=== PATIENT | female | born 1985 | race Caucasian/White ===

== ENCOUNTER 2020-08-04 20:32 | Inpatient (IN) | payer MEDICAID, OTHER ==
[~2020-08-04] VITALS: Ht 170.1 cm; Wt 84.1 kg
[2020-08-04] MEDS ORDERED: LACTATED RINGERS 1,000 ML IV ONE (21:00)
[2020-08-04 21:18] LABS: BASOPHILS # (AUTO) 0.1 10^3/uL (0.0-0.1); BASOPHILS % (AUTO) 0 % (0-10); EOSINOPHILS # (AUTO) 0.1 10^3/uL (0.0-0.3); EOSINOPHILS % (AUTO) 1 % (0-10); HEMATOCRIT 45 % (35-52); HEMOGLOBIN 15.7 g/dL (11.5-16.0); LYMPHOCYTES # (AUTO) 3.5 10^3/uL (1.0-4.0); LYMPHOCYTES % (AUTO) 24 % (12-44); MEAN CORPUSCULAR HEMOGLOBIN 31 pg (25-34); MEAN CORPUSCULAR HGB CONC 35 g/dL (32-36); MEAN CORPUSCULAR VOLUME 89 fL (80-99); MEAN PLATELET VOLUME 10.3 fL (9.0-12.2); MONOCYTES # (AUTO) 1.6 10^3/uL (0.0-1.0); MONOCYTES % (AUTO) 11 % (0-12); NEUTROPHILS # (AUTO) 9.3 10^3/uL (1.8-7.8); NEUTROPHILS % (AUTO) 64 % (42-75); PLATELET COUNT 295 10^3/uL (130-400); WHITE BLOOD COUNT 14.6 10^3/uL (4.3-11.0)
[2020-08-04 21:27] LABS: CLARITY,URINE SL CLOUDY; COLOR,URINE YELLOW; GLUCOSE, URINE (UA) NEGATIVE (NEGATIVE); KETONES,URINE 1+ (NEGATIVE); LEUKOCYTE ESTERASE ,URINE NEGATIVE (NEGATIVE); NITRITE,URINE NEGATIVE (NEGATIVE); PH,URINE 5.5 (5-9); PROTEIN,URINE TRACE (NEGATIVE)
--- NOTE | 2020-08-04 21:33 | ED Psychosocial ---
General Chief Complaint: Substance Abuse Stated Complaint: AMS Source: EMS Exam Limitations: clinical condition (PT SEDATE ON ARRIVAL--EMS HAS TREATED WITH ATIVAN PRIOR TO ARRIVAL) History of Present Illness Date Seen by Provider: Aug 04, 2020 Time Seen by Provider: 20:40 Initial Comments PT ARRIVES VIA EMS FROM HOME EMS STATES THAT BOYFRIEND CALLED FOR PT WHO HAS BEEN ON A METH BINGE FOR THE LAST 4 DAYS ( IS UNKNOWN HOW IT HAS BEEN USED) AND WAS COMPLETELY OUT OF CONTROL, AND SHE HAS ALSO BEEN SMOKING MARIJUANA AND DRINKING AN UNKNOWN AMOUNT OF ALCOHOL--EMS REPORT THAT PT WAS FINISHING OFF A BOTTLE OF RAYMOND HENSON WHEN THEY ARRIVED EMS REPORT THAT PT WAS HAVING ALOT OF DYSTONIC MOVEMENT AND COULD NOT SIT OR LAY STILL, AND "WAS JUMPING AROUND LIKE A SPIDER MONKEY" AND THEY REPORT THAT PT HAD COMPLETELY DEMOLISHED THE RESIDENCE. EMS STATE PT WAS ABLE TO ANSWER A FEW QUESTIONS FOR THEM, BUT PT REQUIRED ATIVAN TO CONTROL BEHAVIOR--PT WAS GIVEN 4 MG ATIVAN PRIOR TO ARRIVAL AND NOW PT IS VERY SEDATE ON ARRIVAL IT WAS REPORTED TO EMS THAT PT JUST GOT OUT OF REHAB FACILITY IN [place] IN THE LAST WEEK NO OTHER INFORMATION IS OBTAINABLE AT THIS TIME PT WITH NO PRIOR VISITS HERE Allergies and Home Medications Allergies Coded Allergies: No Known Drug Allergies (Unverified , 08/04/20) Patient Home Medication List Home Medication List Reviewed: No Review of Systems Constitutional: other (UNABLE TO OBTAIN FROM PT) Psychiatric/Neurological: See HPI Past Olatcat-Aarlxm-Cprxfz Hx Past Med/Social Hx: Reviewed and Corrections made Patient Social History Alcohol Use: Regular Use Drug of Choice: METH, THC Smoking Status: Unknown if Ever Smoked Past Medical History Surgeries: Yes (PT HAS SURGICAL SCAR TO LEFT HUMERUS AREA) Psychosocial: Yes (POLYSUBSTANCE ABUSE) Physical Exam Vital Signs - First Documented 08/04/20 20:35 Temp 35.9 Pulse 101 Resp 20 B/P (MAP) 99/69 (79) Pulse Ox 100 O2 Delivery Nasal Cannula O2 Flow Rate 2.00 Capillary Refill : Height, Weight, BMI Height: '" Weight: lbs. oz. kg; BMI Method: General Appearance: other (PT SEDATE WITH MILD SNORING, RESOLVED WITH REPOSITIONING OF HEAD. RESPIRATIONS EVEN AND UNLABORED, O2 SATS 98% ON ROOM AIR. ) HEENT: other (PUPILS 2 MM, EQUAL AND NON-REACTIVE. ) Respiratory: no respiratory distress, no accessory muscle use Cardiovascular: no murmur, tachycardia Gastrointestinal: normal bowel sounds, soft, no organomegaly Extremities: no pedal edema, normal capillary refill Neurologic/Psychiatric: other ( ABOVE. ) Skin: normal color, warm/dry, other (PT WITH VERY EXTENSIVE SORES/SCARS/SCABS TO FACE, ARMS, CHEST AND LEGS--CONSISTENT WITH "PICKING" ) Progress/Results/Core Measures Results/Orders Lab Results Laboratory Tests Test 08/04/20 20:55 08/04/20 21:14 Range/Units White Blood Count 14.6 H 4.3-11.0 10^3/uL Red Blood Count 5.05 3.80-5.11 10^6/uL Hemoglobin 15.7 11.5-16.0 g/dL Hematocrit 45 35-52 % Mean Corpuscular Volume 89 80-99 fL Mean Corpuscular Hemoglobin 31 25-34 pg Mean Corpuscular Hemoglobin Concent 35 32-36 g/dL Red Cell Distribution Width 12.2 10.0-14.5 % Platelet Count 295 130-400 10^3/uL Mean Platelet Volume 10.3 9.0-12.2 fL Immature Granulocyte % (Auto) 0 % Neutrophils (%) (Auto) 64 42-75 % Lymphocytes (%) (Auto) 24 12-44 % Monocytes (%) (Auto) 11 0-12 % Eosinophils (%) (Auto) 1 0-10 % Basophils (%) (Auto) 0 0-10 % Neutrophils # (Auto) 9.3 H 1.8-7.8 10^3/uL Lymphocytes # (Auto) 3.5 1.0-4.0 10^3/uL Monocytes # (Auto) 1.6 H 0.0-1.0 10^3/uL Eosinophils # (Auto) 0.1 0.0-0.3 10^3/uL Basophils # (Auto) 0.1 0.0-0.1 10^3/uL Immature Granulocyte # (Auto) 0.1 0.0-0.1 10^3/uL Prothrombin Time 13.9 12.2-14.7 SEC INR Comment 1.0 0.8-1.4 Activated Partial Thromboplast Time 23 L 24-35 SEC Urine Color YELLOW Urine Clarity SL CLOUDY Urine pH 5.5 5-9 Urine Specific Carr 1.025 H 1.016-1.022 Urine Protein TRACE H NEGATIVE Urine Glucose (UA) NEGATIVE NEGATIVE Urine Ketones 1+ H NEGATIVE Urine Nitrite NEGATIVE NEGATIVE Urine Bilirubin 2+ H NEGATIVE Urine Urobilinogen 1.0 < = 1.0 MG/DL Urine Leukocyte Esterase NEGATIVE NEGATIVE Urine RBC (Auto) NEGATIVE NEGATIVE Urine RBC NONE /HPF Urine WBC 2-5 /HPF Urine Squamous Epithelial Cells 5-10 /HPF Urine Crystals NONE /LPF Urine Bacteria MODERATE H /HPF Urine Casts PRESENT /LPF Urine Hyaline Casts 10-25 H /LPF Urine Mucus SMALL H /LPF Urine Culture Indicated YES Sodium Level 140 135-145 MMOL/L Potassium Level 3.2 L 3.6-5.0 MMOL/L Chloride Level 105 98-107 MMOL/L Carbon Dioxide Level 16 L 21-32 MMOL/L Anion Gap 19 H 5-14 MMOL/L Blood Urea Nitrogen 12 7-18 MG/DL Creatinine 0.85 0.60-1.30 MG/DL Estimat Glomerular Filtration Rate > 60 BUN/Creatinine Ratio 14 Glucose Level 92 70-105 MG/DL Calcium Level 9.4 8.5-10.1 MG/DL Corrected Calcium 8.5-10.1 MG/DL Magnesium Level 2.0 1.6-2.4 MG/DL Total Bilirubin 1.2 H 0.1-1.0 MG/DL Aspartate Amino Transf (AST/SGOT) 26 5-34 U/L Alanine Aminotransferase (ALT/SGPT) 18 0-55 U/L Alkaline Phosphatase 90 40-136 U/L Total Creatine Kinase 345 H 29-168 U/L Creatine Kinase MB 5.6 <6.6 NG/ML Myoglobin 206.6 H 10.0-92.0 NG/ML Total Protein 7.5 6.4-8.2 GM/DL Albumin 4.6 H 3.2-4.5 GM/DL Serum Test, Qualitative NEGATIVE NEGATIVE Urine Opiates Screen POSITIVE H NEGATIVE Urine Oxycodone Screen NEGATIVE NEGATIVE Urine Methadone Screen NEGATIVE NEGATIVE Urine Propoxyphene Screen NEGATIVE NEGATIVE Acetaminophen Level < 10 L 10-30 UG/ML Urine Barbiturates Screen NEGATIVE NEGATIVE Ur Tricyclic Antidepressants Screen NEGATIVE NEGATIVE Urine Phencyclidine Screen NEGATIVE NEGATIVE Urine Amphetamines Screen POSITIVE H NEGATIVE Urine Methamphetamines Screen POSITIVE H NEGATIVE Urine Benzodiazepines Screen NEGATIVE NEGATIVE Urine Cocaine Screen NEGATIVE NEGATIVE Urine Cannabinoids Screen NEGATIVE NEGATIVE Serum Alcohol 71 H <10 MG/DL Coronavirus 2019 (MARÍA) Negative Negative My Orders Orders - JEAN-CLAUDE SILVA DO Ed Iv/Invasive Line Start (08/04/20 20:42) Ekg Tracing (08/04/20 20:42) Monitor-Rhythm Ecg Trace Only (08/04/20 20:42) Acetaminophen (08/04/20 20:42) Alcohol (08/04/20 20:42) Cbc With Automated Diff (08/04/20 20:42) Comprehensive Metabolic Panel (08/04/20 20:42) Creatine Kinase (08/04/20 20:42) Creatine Kinase Mb (08/04/20 20:42) Drug Screen Stat (Urine) (08/04/20 20:42) Hcg,Qualitative Serum (08/04/20 20:42) Magnesium (08/04/20 20:42) Protime With Inr (08/04/20 20:42) Partial Thromboplastin Time (08/04/20 20:42) Ua Culture If Indicated (08/04/20 20:42) Myoglobin Serum (08/04/20 20:42) Ed Iv/Invasive Line Start (08/04/20 20:42) Catheter(Urinary) Insert & Ass 03,15 (08/04/20 20:42) Ed Iv/Invasive Line Start (08/04/20 20:47) Lactated Ringers (Lr 1000 Ml Iv Solution (08/04/20 21:00) Chest 1 View, Ap/Pa Only (08/04/20 21:14) Coronavirus Sars-Cov-2 So 2018 (08/04/20 21:14) Covid 19 Inhouse Test (08/04/20 21:14) Urine Culture (08/04/20 20:55) Ceftriaxone For Iv Use (Rocephin For I (08/04/20 22:00) Ceftriaxone For Iv Use (Rocephin For I (08/04/20 22:15) Medications Given in ED Current Medications Medications Dose Ordered Sig/Devyn Route Start Time Stop Time Status Last Admin Dose Admin Ceftriaxone Sodium 1000 mg/ Sterile Water 10 ml @ 200 mls/hr ONCE ONCE IV 08/04/20 22:00 08/04/20 22:02 DC 08/04/20 23:04 200 MLS/HR Lactated Ringer's 1,000 ml @ 0 mls/hr Q0M ONCE IV 08/04/20 21:00 08/04/20 21:01 DC 08/04/20 21:13 1,000 MLS/HR Vital Signs/I&O 08/04/20 08/04/20 08/04/20 20:35 23:15 23:25 Temp 35.9 Pulse 101 86 86 Resp 20 18 B/P (MAP) 99/69 (79) 96/69 Pulse Ox 100 100 O2 Delivery Nasal Cannula Nasal Cannula O2 Flow Rate 2.00 2.00 Progress Progress Note : Progress Note GIVEN IV FLUIDS NO DETERIORATION IN PT'S CONDITION DURING ER STAY PT MAINTAINED AIRWAY THROUGHOUT ER STAY WITH O2 SATS 97-98% ON ROOM AIR THROUGHOUT ENTIRE ER STAY Initial ECG Impression Date: Aug 04, 2020 Initial ECG Impression Time: 20:42 Initial ECG Rate: 99 Initial ECG Rhythm: Normal Sinus Initial ECG Impression: Nonspecific Changes Initial ECG Comparisson: No Previous ECG Available Diagnostic Imaging Comments CXR--PER RADIOLOGIST REPORT AT 2141 FINDINGS: There is mild elevation of the right hemidiaphragm with mild right convex curvature at the upper thoracic spine. Cardiac silhouette is normal in size. There is no pleural effusion or pneumothorax. No focal consolidation is seen. IMPRESSION: No acute pulmonary abnormality is seen. Reviewed: Reviewed by Me Departure Communication (Admissions) 2152--SPOKE WITH DR. YUN, HOSPITALIST, ACCEPTS PT FOR ADMIT Impression Primary Impression: Polysubstance abuse Additional Impressions: Altered mental status associated with intoxication Alcohol use Disposition: ADMITTED INPATIENT Condition: Stable Admissions Decision to Admit Reason: Admit from ER (General) Decision to Admit/Date: Aug 04, 2020 Time/Decision to Admit Time: 21:55 Departure-Patient Inst. Referrals: NO,LOCAL PHYSICIAN (PCP/Family) Primary Care Physician Patient Instructions: ALCOHOL AND SUBSTANCE ABUSE JEAN-CLAUDE SILVA DO Aug 04, 2020 21:33
--- NOTE | 2020-08-04 21:37 | Diagnostic Imaging Report ---
HISTORY: Altered mental status, methamphetamine use. COMPARISON: None. TECHNIQUE: Frontal view of the chest. FINDINGS: There is mild elevation of the right hemidiaphragm with mild right convex curvature at the upper thoracic spine. Cardiac silhouette is normal in size. There is no pleural effusion or pneumothorax. No focal consolidation is seen. IMPRESSION: No acute pulmonary abnormality is seen. Dictated by: Dictated on workstation # [id number]
[2020-08-04 21:41] LABS: BACTERIA,URINE MODERATE /HPF; BILIRUBIN,URINE 2+ (NEGATIVE)
[2020-08-04 21:48] LABS: AMPHETAMINE SCREEN, URINE POSITIVE (NEGATIVE); BARBITURATE SCREEN URINE NEGATIVE (NEGATIVE); BENZODIAZEPINES SCREEN URINE NEGATIVE (NEGATIVE); CANNABINOID SCREEN, URINE NEGATIVE (NEGATIVE); COCAINE SCREEN URINE NEGATIVE (NEGATIVE); METHADONE STAT NEGATIVE (NEGATIVE); METHAMPHETAMINE SCREEN URINE S POSITIVE (NEGATIVE); OPIATE SCREEN URINE POSITIVE (NEGATIVE); OXYCODONE STAT NEGATIVE (NEGATIVE); PROPOXYPHENE STAT NEGATIVE (NEGATIVE); TRICYCLIC ANTIDEPRESSANTS SCRE NEGATIVE (NEGATIVE)
[2020-08-04 21:51] LABS: CHLORIDE 105 MMOL/L (98-107); POTASSIUM 3.2 MMOL/L (3.6-5.0); SODIUM 140 MMOL/L (135-145)
[2020-08-04 21:52] LABS: ALBUMIN 4.6 GM/DL (3.2-4.5); PROTHROMBIN TIME PATIENT 13.9 SEC (12.2-14.7)
[2020-08-04 21:53] LABS: CALCIUM 9.4 MG/DL (8.5-10.1)
[2020-08-04 21:54] LABS: GLUCOSE 92 MG/DL (70-105); TOTAL PROTEIN 7.5 GM/DL (6.4-8.2)
[2020-08-04 21:55] LABS: CARBON DIOXIDE 16 MMOL/L (21-32)
[2020-08-04 21:56] LABS: BILIRUBIN,TOTAL 1.2 MG/DL (0.1-1.0)
[2020-08-04 21:58] LABS: ALKALINE PHOSPHATASE 90 U/L (40-136); CREATININE SERUM 0.85 MG/DL (0.60-1.30); GFR ESTIMATED > 60
[2020-08-04 21:59] LABS: BUN/CREATININE RATIO 14
[2020-08-04] MEDS ORDERED: cefTRIAXone FOR IV USE 1,000 MG in WATER (STERILE) FOR INJECTION 10 ML IV ONE ×2 (22:00→22:15)
[2020-08-04 22:01] LABS: ALANINE AMINOTRANSFERASE 18 U/L (0-55); CREATINE KINASE 345 U/L (29-168)
[2020-08-04 22:08] LABS: CREATINE KINASE MB 5.6 NG/ML (<6.6)
[2020-08-04 22:09] LABS: ACETAMINOPHEN < 10 UG/ML (10-30)
[2020-08-04] MEDS ORDERED: WATER (STERILE) FOR INJECTION 10 ML ONE (22:54)
[2020-08-04] MEDS ORDERED: cefTRIAXone 1,000 MG IV (ROCEPHIN) VIAL ONE (22:55)
[2020-08-04] MEDS ORDERED: D5 1/2 NS W/KCL 20 MEQ/L 1,000 ML IV ONE (23:17)
[2020-08-04] MEDS ORDERED: LORazepam INJ 2 MG/ML (ATIVAN) VIAL ONE (23:20)
[2020-08-04] MEDS: D5 1/2 NS W/KCL 20 MEQ 1000 ML IV SCH (23:20)
[2020-08-04] MEDS: LORazepam INJ 2 MG/ML (ATIVAN) VIAL IV PRN (23:22)
[2020-08-04] MEDS ORDERED: ANTACID SUSP 30 ML UDC (MYLANTA) PO PRN (23:45)
[2020-08-04] MEDS ORDERED: LORazepam INJ 2 MG/ML (ATIVAN) VIAL IM/IV PRN (23:45)
[2020-08-04] MEDS ORDERED: ONDANSETRON 4 MG (ZOFRAN) ORAL DISSOLVE TAB SL PRN (23:45)
[2020-08-04] MEDS ORDERED: LORazepam 1 MG (ATIVAN) TAB PO PRN (23:45)
[2020-08-04] MEDS ORDERED: SENNA W/DOCUSATE (SENOKOT S) TABLET PO PRN (23:45)
[2020-08-04] MEDS ORDERED: ONDANSETRON 4 MG/2 ML (SDV) Z0FRAN IV PRN (23:45)
[2020-08-05] MEDS: LORazepam INJ 2 MG/ML (ATIVAN) VIAL IV PRN ×2 (02:30→08:48)
[2020-08-05 04:18] LABS: BASOPHILS % (AUTO) 0 % (0-10); EOSINOPHILS # (AUTO) 0.2 10^3/uL (0.0-0.3); EOSINOPHILS % (AUTO) 3 % (0-10); HEMATOCRIT 41 % (35-52); HEMOGLOBIN 13.6 g/dL (11.5-16.0); LYMPHOCYTES # (AUTO) 2.3 10^3/uL (1.0-4.0); LYMPHOCYTES % (AUTO) 28 % (12-44); MEAN CORPUSCULAR HEMOGLOBIN 30 pg (25-34); MEAN CORPUSCULAR HGB CONC 33 g/dL (32-36); MEAN CORPUSCULAR VOLUME 91 fL (80-99); MEAN PLATELET VOLUME 9.9 fL (9.0-12.2); MONOCYTES # (AUTO) 0.8 10^3/uL (0.0-1.0); MONOCYTES % (AUTO) 9 % (0-12); NEUTROPHILS # (AUTO) 4.9 10^3/uL (1.8-7.8); NEUTROPHILS % (AUTO) 59 % (42-75); PLATELET COUNT 191 10^3/uL (130-400); WHITE BLOOD COUNT 8.3 10^3/uL (4.3-11.0)
[2020-08-05 04:24] LABS: ALBUMIN 3.7 GM/DL (3.2-4.5); CHLORIDE 106 MMOL/L (98-107); POTASSIUM 3.2 MMOL/L (3.6-5.0); SODIUM 139 MMOL/L (135-145)
[2020-08-05 04:25] LABS: CALCIUM 8.2 MG/DL (8.5-10.1)
[2020-08-05 04:26] LABS: GLUCOSE 102 MG/DL (70-105)
[2020-08-05 04:28] LABS: BILIRUBIN,TOTAL 0.8 MG/DL (0.1-1.0); CARBON DIOXIDE 24 MMOL/L (21-32)
[2020-08-05 04:30] LABS: ALKALINE PHOSPHATASE 74 U/L (40-136); CREATININE SERUM 0.67 MG/DL (0.60-1.30); GFR ESTIMATED > 60
[2020-08-05 04:31] LABS: BUN/CREATININE RATIO 15
[2020-08-05 04:33] LABS: ALANINE AMINOTRANSFERASE 16 U/L (0-55); MAGNESIUM 2.2 MG/DL (1.6-2.4)
[2020-08-05] MEDS ORDERED: POTASSIUM CL 10MEQ/50ML IVPB 50 ML IV SCH (05:45)
--- NOTE | 2020-08-05 05:49 | Pulmonary Consultation ---
History of Present Illness History of Present Illness Date Seen by Provider: Aug 05, 2020 Time Seen by Provider: 05:43 Date of Admission Allergies and Home Medications Allergies Coded Allergies: No Known Drug Allergies (Unverified , 08/04/20) Past Nbwxcqg-Zudzpf-Wkoync Hx Past Med/Social Hx: Reviewed and Corrections made Patient Social History Alcohol Use: Regular Use Drug of Choice: METH, THC Smoking Status: Unknown if Ever Smoked Recent Infectious Disease Expo: No Substance type: Amphetamines, Methamphetamine, Opiates/Opioids, Marijuana Alcohol Use?: Yes Past Medical History Surgeries: Yes (PT HAS SURGICAL SCAR TO LEFT HUMERUS AREA) Psychosocial: Yes (POLYSUBSTANCE ABUSE) Review of Systems Time Seen by Provider: 05:47 Sepsis Event Evaluation Height, Weight, BMI Height: '" Weight: lbs. oz. kg; 27.37 BMI Method: Exam Exam Vital Signs Date Time Temp Pulse Resp B/P (MAP) Pulse Ox O2 Delivery O2 Flow Rate FiO2 08/05/20 05:00 70 110/69 (83) 100 Nasal Cannula 2.00 08/05/20 04:30 36.4 08/05/20 04:05 75 110/77 (88) 100 Nasal Cannula 2.00 08/05/20 03:59 100 Nasal Cannula 2.00 08/05/20 03:00 86 123/95 (104) 100 Nasal Cannula 2.00 08/05/20 02:00 76 92/63 (73) 100 Nasal Cannula 2.00 08/05/20 01:00 81 90/61 (71) 100 Nasal Cannula 2.00 08/05/20 01:00 81 08/05/20 00:45 81 86/58 (67) 100 Nasal Cannula 2.00 08/05/20 00:30 84 89/60 (70) 100 Nasal Cannula 2.00 08/05/20 00:15 86 91/59 (70) 100 Nasal Cannula 2.00 08/05/20 00:00 85 90/63 (72) 100 Nasal Cannula 2.00 08/04/20 23:45 87 96/75 (82) 100 Nasal Cannula 2.00 08/04/20 23:30 86 95/68 (77) 100 Nasal Cannula 2.00 08/04/20 23:30 100 Nasal Cannula 2.00 08/04/20 23:25 86 08/04/20 23:20 35.9 71 20 98/66 (77) 100 Nasal Cannula 2.00 08/04/20 23:15 86 18 96/69 100 Nasal Cannula 2.00 08/04/20 20:35 35.9 101 20 99/69 (79) 100 Nasal Cannula 2.00 I & O 08/05/20 07:00 Intake Total 1010 ml Output Total 125 ml Balance 885 ml Height & Weight Height: '" Weight: lbs. oz. kg; 27.37 BMI Method: Capillary Refill: Less Than 3 Seconds Gastrointestinal: normal bowel sounds, soft, no organomegaly Results Lab Laboratory Tests 08/04/20 20:55 08/05/20 04:05 Assessment/Plan Assessment/Plan Polysubstance abuse with agitation and confusion -Start precedex gtt Alcohol dependance -[facility] protocol UTI -GINA Hannon DO Aug 05, 2020 05:49
[2020-08-05] MEDS: POTASSIUM CL 10MEQ/50ML IVPB 50 ML IV SCH ×7 (06:01→10:01)
[2020-08-05] MEDS: DexMEDEtomidine 250 ML DRIP 250 ML IV SCH ×2 (06:02→17:21)
[2020-08-05] MEDS: D5 1/2 NS W/KCL 20 MEQ 1000 ML IV SCH ×3 (06:46→20:10)
--- NOTE | 2020-08-05 08:04 | History & Physical-Hospitalist ---
MARISSA SANDOVAL MED STUDENT 08/05/20 0804: History of Present Illness HPI/Chief Complaint 34 yo F presents to ER from home via EMS due to altered mental status/ erratic behavior as reported by boyfriend. Pt was sedated with 4mg ativan by EMS on route to ER due to combative behavior. EMS also reports that the patient was having a lot of dystonic movement and could not sit or lay still. Boyfriend reports the patient has been on a meth binge for the last 4 days, route of administration is unknown at this time. Pt also reportedly had been smoking dafne itzel and drinking an unknown amount of alcohol, though EMS reports that the patient was finishing a bottle of tequila when they arrived. Pt was able to answer few questions to EMS including that she was recently released from a rehabilitation facility in [place] within the past week *HPI gathered from ER summary report due to limited availability for interview or exam Source: RN/MD, other (ED summary reviewed) Exam Limitations: clinical condition (sedated and combative when able to be aroused) Date Seen 08/05/20 Time Seen by a Provider: 07:59 Attending Physician Iman Jones DO PCP No,Local Physician Referring Physician Date of Admission Aug 04, 2020 at 22:14 Home Medications & Allergies Home Medications Reviewed patient Home Medication Reconciliation performed by pharmacy medication reconciliations breeder service technician and/or nursing. Patients Allergies have been reviewed. Allergies Allergies Coded Allergies No Known Drug Allergies (Unverified08/04/20) Past Yzzytbr-Kluavk-Owtesa Hx Past Med/Social Hx: Reviewed and Corrections made Patient Social History Alcohol Use: Regular Use Recreational Drug Use: Yes Drug of Choice: METH, THC Smoking Status: Unknown if Ever Smoked Recent Foreign Travel: No Contact w/other who traveled: No Recent Infectious Disease Expo: No Review of Systems ROS-Unable to Obtain: Unable to obtain at this time due to clinical condition Skin: lesions (Multiple lesions from drug use) Psychiatric/Neurological: Other (Polysubstance abuse) Physical Exam Physical Exam Vital Signs Vital Signs - First Documented 08/04/20 20:35 Temp 35.9 Pulse 101 Resp 20 B/P (MAP) 99/69 (79) Pulse Ox 100 O2 Delivery Nasal Cannula O2 Flow Rate 2.00 Capillary Refill : Less Than 3 Seconds Height, Weight, BMI Height: '" Weight: lbs. oz. kg; 27.37 BMI Method: Comments Unable to obtain at this time due to clinical condition Results Results/Procedures Labs Laboratory Tests 08/04/20 20:55 08/05/20 04:05 Patient resulted labs reviewed. Assessment/Plan Assessment and Plan ASSESSMENT: Altered mental status Polysubstance abuse (meth/amphetamines, opioids, marijuana) Alcohol dependence UTI Hypokalemia - 3.2 (3/1 AM) PLAN: Geodon for combativeness CIWA protocol Thiamine replacement Griselda - rocephin for UTI Obtain more information and examination when possible IMAN JONES DO 08/06/20 0549: History of Present Illness HPI/Chief Complaint Pt was admitted for altered mental status and poly-substance abuse She is currently very agitated, I did give her Geodon 20 Mg IM Q4hrs prn and Ativan She is very combative and may ultimately require intubation if her agitation and aggression worsen Unable to obtain any details from her Source: patient Past Zacspuq-Uixmze-Zfodjb Hx Past Med/Social Hx: Reviewed Nursing Past Med/Soc Hx, Reviewed and Corrections made Patient Social History Marrital Status: single Review of Systems Constitutional: see HPI Physical Exam Physical Exam General Appearance: No Apparent Distress, Chronically ill Respiratory: Lungs Clear Cardiovascular: Regular Rate, Rhythm Assessment/Plan Admission Diagnosis Assessment: AMS CUCA Plan: Supportive care Antipsychotics Admission Status: Inpatient Order (span 2 midnights) Reason for Inpatient Admission: ams Diagnosis/Problems Diagnosis/Problems (1) Altered mental status associated with intoxication Status: Acute (2) Polysubstance abuse Status: Acute (3) Alcohol use Status: Acute Supervisory-Addendum Brief Verification & Attestation Participated in pt care: history, MDM, physical Personally performed: exam, history, MDM, supervision of care Care discussed with: Medical Student Procedures: n/a Results interpretation: Verified all documentation Verification and Attestation of Medical Student E/M Service A medical student performed and documented this service in my presence. I reviewed and verified all information documented by the medical student and made modifications to such information, when appropriate. I personally performed the physical exam and medical decision making. Iman Jones, Aug 06, 2020,05:49 MARISSA SANDOVAL MED STUDENT Aug 05, 2020 08:04 IMAN JONES DO Aug 06, 2020 05:49
[2020-08-05] MEDS: THIAMINE INJECTION 100 MG, FOLIC ACID INJECTION 1 MG, MAGNESIUM SULFATE 2 GM, VITAMIN M... IV SCH ×5 (08:05)
[2020-08-05] MEDS ORDERED: ZIPRASIDONE 20 MG INJ (GEODON) VIAL IM ONE (08:53)
[2020-08-05] MEDS ORDERED: ZIPRASIDONE INJECTION 20 MG in WATER (STERILE) FOR INJECTION 1.2 ML IM PRN (09:00)
[2020-08-05] MEDS ORDERED: NS IV 1000 ML 1,000 ML ONE (20:27)
[2020-08-05] MEDS ORDERED: NS IV 1000 ML 1,000 ML IV SCH (20:30)
[2020-08-05] MEDS: cefTRIAXone 1,000 MG/SWFI 10 ML IV PUSH IV SCH ×2 (23:13)
[2020-08-06] MEDS ORDERED: NS IV 1000 ML 2,000 ML ONE (02:05)
[2020-08-06] MEDS: NS IV 1000 ML 1,000 ML IV SCH ×2 (02:13→03:17)
[2020-08-06] MEDS: D5 1/2 NS W/KCL 20 MEQ 1000 ML IV SCH (02:28)
[2020-08-06 02:58] LABS: BASOPHILS % (AUTO) 0 % (0-10); EOSINOPHILS # (AUTO) 0.2 10^3/uL (0.0-0.3); EOSINOPHILS % (AUTO) 3 % (0-10); HEMATOCRIT 40 % (35-52); HEMOGLOBIN 12.8 g/dL (11.5-16.0); LYMPHOCYTES % (AUTO) 26 % (12-44); MEAN CORPUSCULAR HEMOGLOBIN 30 pg (25-34); MEAN CORPUSCULAR HGB CONC 32 g/dL (32-36); MEAN CORPUSCULAR VOLUME 93 fL (80-99); MEAN PLATELET VOLUME 10.2 fL (9.0-12.2); MONOCYTES # (AUTO) 0.4 10^3/uL (0.0-1.0); MONOCYTES % (AUTO) 5 % (0-12); NEUTROPHILS # (AUTO) 5.1 10^3/uL (1.8-7.8); NEUTROPHILS % (AUTO) 65 % (42-75); PLATELET COUNT 174 10^3/uL (130-400); WHITE BLOOD COUNT 7.8 10^3/uL (4.3-11.0)
[2020-08-06 03:16] LABS: CHLORIDE 115 MMOL/L (98-107); POTASSIUM 4.6 MMOL/L (3.6-5.0); SODIUM 139 MMOL/L (135-145)
[2020-08-06 03:17] LABS: CALCIUM 7.3 MG/DL (8.5-10.1)
[2020-08-06 03:18] LABS: GLUCOSE 80 MG/DL (70-105)
[2020-08-06 03:19] LABS: CARBON DIOXIDE 18 MMOL/L (21-32)
[2020-08-06 03:21] LABS: CREATININE SERUM 0.58 MG/DL (0.60-1.30); GFR ESTIMATED > 60; PHOSPHORUS 2.2 MG/DL (2.3-4.7)
[2020-08-06 03:22] LABS: BUN/CREATININE RATIO 7
[2020-08-06 03:24] LABS: MAGNESIUM 2.2 MG/DL (1.6-2.4)
--- NOTE | 2020-08-06 04:47 | Pulmonary Progress Note ---
Subjective Time Seen by a Provider: 04:47 Subjective/Events-last exam No complications noted. Sepsis Event Evaluation Height, Weight, BMI Height: '" Weight: lbs. oz. kg; 27.37 BMI Method: Focused Exam Lactate Level 08/06/20 02:45: Lactic Acid Level 1.46 Lactic Acid Level Laboratory Tests Test 08/06/20 02:45 Lactic Acid Level 1.46 MMOL/L (0.50-2.00) Exam Exam Vital Signs Date Time Temp Pulse Resp B/P (MAP) Pulse Ox O2 Delivery O2 Flow Rate FiO2 08/06/20 04:00 68 19 101/62 (75) 98 Room Air 08/06/20 03:00 70 12 91/63 (72) 99 Room Air 08/06/20 02:00 56 13 83/50 (61) 98 Room Air 08/06/20 01:00 73 27 94/76 (82) 97 Room Air 08/06/20 01:00 73 08/06/20 00:29 35.6 08/06/20 00:15 65 17 93/62 (72) 95 Room Air 08/06/20 00:00 98 Room Air 08/05/20 23:00 55 13 85/58 (67) 99 Room Air 08/05/20 22:00 56 15 96/51 (66) 97 Room Air 08/05/20 21:00 58 14 63/40 (48) 99 Room Air 08/05/20 20:11 35.1 47 16 74/52 (59) 99 Room Air 08/05/20 20:00 99 Room Air 08/05/20 20:00 47 16 71/47 (55) 99 Room Air 08/05/20 19:00 45 15 79/52 (61) 89 Room Air 08/05/20 19:00 46 08/05/20 18:00 15 78/48 (58) 90 Nasal Cannula 2.00 08/05/20 17:21 55 81/58 08/05/20 17:00 25 81/58 (66) 98 Nasal Cannula 2.00 08/05/20 16:00 98 Room Air 08/05/20 16:00 25 84/54 (64) 98 Nasal Cannula 2.00 08/05/20 15:00 17 94/56 (69) 98 Nasal Cannula 2.00 08/05/20 14:00 23 91/56 (68) 99 Nasal Cannula 2.00 08/05/20 13:00 24 90/60 (70) 98 Nasal Cannula 2.00 08/05/20 12:55 76 08/05/20 12:00 98 Room Air 08/05/20 12:00 36.1 08/05/20 12:00 64 21 95/61 (72) 99 Nasal Cannula 2.00 08/05/20 11:00 25 94/66 (75) 100 Nasal Cannula 2.00 08/05/20 10:00 67 93/45 (61) 98 Nasal Cannula 2.00 08/05/20 09:00 68 94/51 (65) 99 Nasal Cannula 2.00 08/05/20 08:12 36.3 08/05/20 08:00 63 82/56 (65) 100 Nasal Cannula 2.00 08/05/20 08:00 100 Room Air 08/05/20 07:00 75 99/50 (66) 100 Nasal Cannula 2.00 08/05/20 06:50 76 08/05/20 06:02 66 112/74 08/05/20 06:00 69 112/74 (87) 100 Nasal Cannula 2.00 08/05/20 05:00 70 110/69 (83) 100 Nasal Cannula 2.00 I & O 08/06/20 07:00 Intake Total 1050 ml Output Total 1295 ml Balance -245 ml Height & Weight Height: '" Weight: lbs. oz. kg; 27.37 BMI Method: General Appearance: No Apparent Distress, Anxious HEENT: PERRL/EOMI, Pharynx Normal Neck: Full Range of Motion, Non Tender, Supple Respiratory: Chest Non Tender, Lungs Clear, Normal Breath Sounds, No Accessory Muscle Use, No Respiratory Distress Cardiovascular: Regular Rate, Rhythm, No Edema, No Gallop Capillary Refill: Less Than 3 Seconds Gastrointestinal: normal bowel sounds, soft, no organomegaly Extremity: Normal Capillary Refill Neurologic/Psychiatric: Alert, Oriented x3 Skin: Normal Color, Warm/Dry Lymphatic: No Adenopathy Results Lab Laboratory Tests 08/04/20 20:55 08/05/20 04:05 08/06/20 02:45 Assessment/Plan Assessment/Plan Polysubstance abuse with agitation and confusion -precedex gtt is now off -PRN Geodon -Ativan Methamphetamine abuse Alcohol dependance -CIWA protocol Metabolic acidosis -LA is normal -Give 2 amps of bicarb Hypotension -s/p 3 liters NS -Change IVF to D5LR at 150 Multiple facial abrasions -Pt is moving all extremities -She does wake up and follows commands. UTI -GINA Hannon DO Aug 06, 2020 04:47
[2020-08-06] MEDS ORDERED: SODIUM BICARB 8.4% 50 MEQ/50 ML VIAL IV ONE (05:30)
[2020-08-06] MEDS ORDERED: ZIPRASIDONE 20 MG INJ (GEODON) VIAL IM PRN (05:30)
[2020-08-06] MEDS: D5 LR IV SOLUTION 1,000 ML IV SCH ×3 (05:52→20:01)
[2020-08-06] MEDS: ENOXAPARIN 40 MG/0.4 ML (LOVENOX) SYR SC SCH (06:07)
[2020-08-06] MEDS: PANTOPRAZOLE 40 MG (PROTONIX) VIAL IV SCH (08:54)
[2020-08-06] MEDS: THIAMINE INJECTION 100 MG, FOLIC ACID INJECTION 1 MG, MAGNESIUM SULFATE 2 GM, VITAMIN M... IV SCH ×5 (08:55)
[2020-08-06] MEDS: diphenhydrAMINE 25 MG TAB (BENADRYL) PO PRN ×3 (09:45→22:17)
--- NOTE | 2020-08-06 09:59 | Progress Note - Hospitalist ---
Subjective HPI/CC On Admission Date Seen by Provider: Aug 06, 2020 Time Seen by Provider: 10:00 Pt was admitted for altered mental status and poly-substance abuse She is currently very agitated, I did give her Geodon 20 Mg IM Q4hrs prn and Ativan She is very combative and may ultimately require intubation if her agitation and aggression worsen Unable to obtain any details from her Subjective/Events-last exam Pt more lucid Swollen around their periorbital region so will give Benadryl Overall she is doing much better Road rash on the right side of her face Review of Systems General: Fatigue, Malaise Focused Exam Lactate Level 08/06/20 02:45: Lactic Acid Level 1.46 Objective Exam Vital Signs Vital Signs Date Time Temp Pulse Resp B/P (MAP) Pulse Ox O2 Delivery O2 Flow Rate FiO2 08/07/20 04:04 37.1 83 16 107/68 (81) 94 Room Air 08/05/20 20:00 Capillary Refill : Less Than 3 Seconds General Appearance: No Apparent Distress, WD/WN, Chronically ill, Obese Respiratory: Lungs Clear Cardiovascular: Regular Rate, Rhythm Neurologic/Psychiatric: Alert, Oriented x3, No Motor/Sensory Deficits, Normal Mood/Affect Results/Procedures Lab Patient resulted labs reviewed. Assessment/Plan Assessment and Plan Assess & Plan/Chief Complaint ASSESSMENT: Altered mental status Polysubstance abuse (meth/amphetamines, opioids, marijuana) Alcohol dependence UTI Hypokalemia - 3.2 (3/1 AM) PLAN: Geodon for combativeness [facility] protocol Thiamine replacement Griselda - rocephin for UTI Obtain more information and examination when possible 07/09/20: Transfer to 4th floor Review home meds Diagnosis/Problems Diagnosis/Problems (1) Altered mental status associated with intoxication Status: Acute (2) Polysubstance abuse Status: Acute (3) Alcohol use Status: Acute JARRED HARPER DO Aug 06, 2020 09:58
[2020-08-06] MEDS: ACETAMINOPHEN 325 MG TABLET PO PRN ×2 (14:59→22:18)
[2020-08-06] MEDS ORDERED: WATER (STERILE) FOR INJECTION 10 ML ONE (21:50)
[2020-08-06] MEDS ORDERED: cefTRIAXone 1,000 MG IV (ROCEPHIN) VIAL ONE (21:50)
[2020-08-06] MEDS: cefTRIAXone 1,000 MG/SWFI 10 ML IV PUSH IV SCH ×2 (22:02)
[2020-08-07] MEDS: D5 LR IV SOLUTION 1,000 ML IV SCH ×2 (02:46→09:00)
[2020-08-07] MEDS: ENOXAPARIN 40 MG/0.4 ML (LOVENOX) SYR SC SCH (05:29)
[2020-08-07 06:21] LABS: BASOPHILS % (AUTO) 0 % (0-10); EOSINOPHILS # (AUTO) 0.2 10^3/uL (0.0-0.3); EOSINOPHILS % (AUTO) 2 % (0-10); HEMATOCRIT 38 % (35-52); HEMOGLOBIN 12.8 g/dL (11.5-16.0); LYMPHOCYTES # (AUTO) 2.7 10^3/uL (1.0-4.0); LYMPHOCYTES % (AUTO) 39 % (12-44); MEAN CORPUSCULAR HEMOGLOBIN 31 pg (25-34); MEAN CORPUSCULAR HGB CONC 33 g/dL (32-36); MEAN CORPUSCULAR VOLUME 92 fL (80-99); MEAN PLATELET VOLUME 10.1 fL (9.0-12.2); MONOCYTES # (AUTO) 0.5 10^3/uL (0.0-1.0); MONOCYTES % (AUTO) 7 % (0-12); NEUTROPHILS # (AUTO) 3.6 10^3/uL (1.8-7.8); NEUTROPHILS % (AUTO) 51 % (42-75); PLATELET COUNT 210 10^3/uL (130-400)
[2020-08-07 06:30] LABS: CHLORIDE 110 MMOL/L (98-107); POTASSIUM 3.5 MMOL/L (3.6-5.0); SODIUM 142 MMOL/L (135-145)
[2020-08-07 06:31] LABS: CALCIUM 7.6 MG/DL (8.5-10.1)
[2020-08-07 06:32] LABS: GLUCOSE 88 MG/DL (70-105)
[2020-08-07 06:33] LABS: CARBON DIOXIDE 24 MMOL/L (21-32)
[2020-08-07 06:36] LABS: CREATININE SERUM 0.63 MG/DL (0.60-1.30); GFR ESTIMATED > 60; PHOSPHORUS 2.5 MG/DL (2.3-4.7)
[2020-08-07 06:37] LABS: BUN/CREATININE RATIO 3
[2020-08-07 06:38] LABS: MAGNESIUM 2.1 MG/DL (1.6-2.4)
[2020-08-07] MEDS: THIAMINE INJECTION 100 MG, FOLIC ACID INJECTION 1 MG, MAGNESIUM SULFATE 2 GM, VITAMIN M... IV SCH ×5 (09:00)
[2020-08-07] MEDS: PANTOPRAZOLE 40 MG (PROTONIX) VIAL IV SCH (09:00)
[2020-08-07] MEDS ORDERED: GABA300C PO (09:22)
[2020-08-07] MEDS ORDERED: TRZ50T PO (09:22)
[2020-08-07] MEDS ORDERED: HYDR50TA76 PO (09:22)
[2020-08-07] MEDS ORDERED: BREX2TAB PO (09:22)
[2020-08-07] MEDS ORDERED: SERT-414 PO (09:22)
--- NOTE | 2020-08-07 11:02 | Discharge Summary ---
Discharge Summary Hospital Course Problems/Dx: (1) Altered mental status associated with intoxication Status: Acute (2) Polysubstance abuse Status: Acute (3) Alcohol use Status: Acute Hospital Course Date of Admission: Aug 04, 2020 at 22:14 Admission Diagnosis : Family Physician/Provider: Christel,Local Physician Date of Discharge: 08/07/20 Discharge Diagnosis: polysubstance use, AMS Hospital Course: Hospital course: Pt had an uneventful hospital course, she was admitted for poly-substance abuse with meth and she was in an altered mental status requiring anti-psychotics to calm her. Overall she did very well, she recovered well, PT saw her and had no reservations about her discharging. She will have an appointment with drug rehab at [facility] tomorrow. Labs and Pending Lab Test: Laboratory Tests 08/06/20 18:05: Stool Occult Blood Immunoassay NEGATIVE 08/07/20 05:45: White Blood Count 7.0, Red Blood Count 4.19, Hemoglobin 12.8, Hematocrit 38, Mean Corpuscular Volume 92, Mean Corpuscular Hemoglobin 31, Mean Corpuscular Hemoglobin Concent 33, Red Cell Distribution Width 12.2, Platelet Count 210, Mean Platelet Volume 10.1, Immature Granulocyte % (Auto) 0, Neutrophils (%) (Auto) 51, Lymphocytes (%) (Auto) 39, Monocytes (%) (Auto) 7, Eosinophils (%) (Auto) 2, Basophils (%) (Auto) 0, Neutrophils # (Auto) 3.6, Lymphocytes # (Auto) 2.7, Monocytes # (Auto) 0.5, Eosinophils # (Auto) 0.2, Basophils # (Auto) 0.0, Immature Granulocyte # (Auto) 0.0, Sodium Level 142, Potassium Level 3.5L, Chloride Level 110H, Carbon Dioxide Level 24, Anion Gap 8, Blood Urea Nitrogen < 2L, Creatinine 0.63, Estimat Glomerular Filtration Rate > 60, BUN/Creatinine Ratio 3, Glucose Level 88, Calcium Level 7.6L, Phosphorus Level 2.5, Magnesium Level 2.1 Microbiology 08/04/20 MRSA Screen - Final, Complete MRSA not isolated 08/04/20 Urine Culture - Final, Complete NO GROWTH Home Meds Active Reported Neurontin (Gabapentin) 300 Mg Capsule 300 Mg PO TID LAST FILLED 06-27-2020 #120 Rexulti (Brexpiprazole) 2 Mg Tablet 2 Mg PO HS LAST FILLED 06-18-2020 #30 Trazodone HCl 50 Mg Tablet 50-100 Mg PO HS LAST FILLED 06-18-2020 #60 Sertraline HCl 100 Mg Tablet 100 Mg PO DAILY LAST FILLED 06-18-2020 #45 Hydroxyzine HCl 50 Mg Tablet 50 Mg PO TID PRN Assessment/Pt Instructions [facility] tomorrow for rehab Discharge Planning: <30 minutes discharge planning Discharge Instructions Discharge Diet: No Restrictions Discharge Physical Examination Vital Signs Vital Signs Date Time Temp Pulse Resp B/P (MAP) Pulse Ox O2 Delivery O2 Flow Rate FiO2 08/07/20 09:00 Room Air 08/07/20 08:00 36.6 77 16 110/64 (79) 92 08/05/20 20:00 General Appearance: No Apparent Distress, WD/WN, Chronically ill Respiratory: Lungs Clear Cardiovascular: Regular Rate, Rhythm Neurologic/Psychiatric: Alert, Oriented x3, No Motor/Sensory Deficits, Normal Mood/Affect Allergies: Coded Allergies: No Known Drug Allergies (Unverified , 08/04/20) Discharge Summary Date of Admission Aug 04, 2020 at 22:14 Date of Discharge Discharge Date: Aug 07, 2020 Admission Diagnosis Assessment: AMS [facility]CA Plan: Supportive care Antipsychotics Discharge Diagnosis ASSESSMENT: Altered mental status Polysubstance abuse (meth/amphetamines, opioids, marijuana) Alcohol dependence UTI Hypokalemia - 3.2 (3/1 AM) PLAN: Ryan for combativeness [facility] protocol Thiamine replacement Griselda duncan for UTI Obtain more information and examination when possible 07/09/20: Transfer to 4th floor Review home meds (1) Altered mental status associated with intoxication Status: Acute (2) Polysubstance abuse Status: Acute (3) Alcohol use Status: Acute JARRED HARPER DO Aug 07, 2020 11:02
--- NOTE | 2020-08-07 11:40 | Physical Therapy Evaluation ---
PT Evaluation-General Medical Diagnosis Admission Date Aug 04, 2020 at 22:14 Medical Diagnosis: AMS Onset Date: Aug 04, 2020 Therapy Diagnosis Therapy Diagnosis: impaired mobility, strength, endurance Precautions Precautions/Isolations: Fall Prevention, Standard Precautions Referral Physician: Iman Jones DO Reason for Referral: Evaluation/Treatment Medical History Reviewed History: Yes Social History Home: Apartment Current Living Status: Entry Into Home: Stairs With Railing PT Steps Into Home: 20 Prior Prior Level of Function SCALE: Activities may be completed with or without assistive devices. 5-Lhbhjdejwp-jduzcyo completes the activity by him/herself with no assistance from a helper. 5-Set-up or Clean-up Assistance-helper sets up or cleans up; patient completes activity. [place] assists only prior to or following the activity. 4-Supervision or Touching Assistance-helper provides verbal cues and/or touching/steadying and/or contact guard assistance as patient completes activity. Assistance may be provided throughout the activity or intermittently. 3-Partial/Moderate Assistance-helper does LESS THAN HALF the effort. [place] lifts, holds or supports trunk or limbs, but provides less than half the effort. 2-Substantial/Maximal Assistance-helper does MORE THAN HALF the effort. [place] lifts or holds trunk or limbs and provides more than half the effort. 5-Mykcwewdk-pjeshl does ALL the effort. Patient does none of the effort to complete the activity. Or, the assistance of 2 or more helpers is required for the patient to complete the activity. If activity was not attempted, code reason: 7-Patient Refused. 9-Not Applicable-not attempted and the patient did not perform the activity before the current illness, exacerbation or injury. 10-Not Attempted due to Environmental Limitations-(lack of equipment, weather restraints, etc.). 88-Not Attempted due to Medical Conditions or Safety Concerns. Bed Mobility: 6 Transfers (B,C,W/C): 6 Gait: 6 Stairs: 6 Indoor Mobility (Ambulation): Independent Stairs: Independent PT Evaluation-Current Subjective Patient in bed pre tx, agrees to PT, has no complaints of pain. Patient will not or can barely open her eyes all during tx. Patient has sores all over her body, especially on her face. Pt/Family Goals none stated Objective Patient Orientation: Person, Unable to Assess Attachments: Greco Catheter ROM/Strength ROM Lower Extremities WNL Strength Lower Extremities LLE (hip flexion 3+/5, knee flexion 4/5, knee extension 4/5, dorsiflexion 4/5), RLE (hip flexion 3+/5, knee flexion 4/5, knee extension 4/5, dorsiflexion 4/5) Sensory Hearing: Functional Sensation Right Lower Extremit: Intact Sensation Left Lower Extremity: Intact Transfers Roll Left to Right (QC): 6 Sit to Lying (QC): 6 Lying to Sitting/Side of Bed(Q: 6 Sit to Stand (QC): 4 Chair/Nng-ha-Gdbcr Xfer(QC): 4 Gait Does the Patient Walk?: Yes Mode of Locomotion: Walk Anticipated Mode of Locomotion: Walk Walk 10 feet (QC): 4 Walk 50 ft with 2 Turns(QC): 4 Distance: 100' Gait Assistive Device: None Comments/Gait Description Patient ambulates slowly and is unsteady but did not have a LOB, CGA, Balance Sitting Static: Normal Sitting Dynamic: Normal Standing Static: Fair Standing Dynamic: Fair Assessment/Needs Patient has impaired mobility, strength, endurance, balance. She is unsteady with ambulation and needs CGA but she didn't actually have a LOB. Patient ambulated a short distance and was motivated to get back into the bed where she immediately closed eyes and would not longer participate. Patient seems confused, easily agitated, very concerned about her urinary catheter. Rehab Potential: Fair PT Teaseler Goals Teaseler Goals PT Shelter Goals Time Frame: Aug 14, 2020 Roll Left & Right (QC): 6 Sit to Lying (QC): 6 Lying-Sitting on Side/Bed(QC): 6 Sit to Stand (QC): 6 Chair/Uex-ci-Ybapd Xfer(QC): 6 Walk 10 feet (QC): 6 Walk 50ft with 2 Turns (QC): 6 Walk 150 ft (QC): 6 PT Plan Problem List Problem List: Activity Tolerance, Functional Strength, Safety, Balance, Gait, Transfer Treatment/Plan Treatment Plan: Continue Plan of Care Treatment Plan: Education, Functional Activity [place], Functional Strength, Gait, Safety, Therapeutic Exercise, Transfers Treatment Duration: Aug 14, 2020 Frequency: 6 times per week Estimated Hrs Per Day: .25 hour per day Patient and/or Family Agrees t: Yes Safety Risks/Education Patient Education: Gait Training, Transfer Techniques, Correct Positioning, Safety Issues Teaching Recipient: Patient Teaching Methods: Demonstration, Discussion Response to Teaching: Reinforcement Needed Discharge Recommendations Plan Patient will perform bed mobility and transfer training, balance and endurance training, functional strengthening, stair training, gait training, and educati on, to improve functional mobility and independence at home. Therapy Discharge Recommendati: 24 Hour Supervision, Post Acute PT Time/GCodes Time In: 1121 Time Out: 1132 Total Billed Treatment Time: 11 Total Billed Treatment 1 visit EVL 11' FAITH ALFRED PT Aug 07, 2020 11:40
[2020-08-07 15:50] VITALS: BP 104/72
== END 2020-08-07 15:50 | disposition home or self-care (01) | DRG 897 ==
LOC: ER 20:39 → ICU 22:14 → 4TH 08-06 17:35
PROVIDERS: ADMIT Family Medicine; ATTEND Internal Medicine
DX: F15.129 Other stimulant abuse with intoxication, unspecified (principal); N39.0 Urinary tract infection, site not specified; E87.2 Acidosis; F10.229 Alcohol dependence with intoxication, unspecified; Z20.822 Contact with and (suspected) exposure to COVID-19; F12.129 Cannabis abuse with intoxication, unspecified; E87.6 Hypokalemia; D50.9 Iron deficiency anemia, unspecified; I95.9 Hypotension, unspecified; S00.81XA Abrasion of other part of head, initial encounter; F11.10 Opioid abuse, uncomplicated
CPT/HCPCS: 36415; 71045; 80048; 80053; 80306; 80320; 80329; 81000; 82274; 82550; 82553; 83605; 83735; 83874; 84100; 84703; 85025; 85610; 85730; 87081; 87088; 87635; 93005; 93041; 94760

== ENCOUNTER 2020-10-05 16:18 | Observation (INO) | payer MEDICAID ==
[~2020-10-05] VITALS: Ht 160 cm; Wt 81.4 kg
[~2020-10-05 16:18] MED LIST: BREX2TAB PO; GABA300C PO; HYDR50TA76 PO; SERT-414 PO; TRZ50T PO
[2020-10-05] MEDS ORDERED: NS IV 1000 ML 1,000 ML IV SCH (16:30)
[2020-10-05] MEDS ORDERED: ONDANSETRON 4 MG/2 ML (SDV) Z0FRAN IVP ONE (16:30)
[2020-10-05] MEDS ORDERED: FAMOTIDINE 20MG/2ML IV (PEPCID) IVP ONE (16:30)
[2020-10-05] MEDS ORDERED: CHARCOAL/AQUEOUS 50 GM/240 ML BTL PO ONE (16:30)
[2020-10-05 16:40] LABS: BASOPHILS # (AUTO) 0.1 10^3/uL (0.0-0.1); BASOPHILS % (AUTO) 1 % (0-10); EOSINOPHILS # (AUTO) 0.1 10^3/uL (0.0-0.3); EOSINOPHILS % (AUTO) 1 % (0-10); HEMATOCRIT 50 % (35-52); HEMOGLOBIN 16.8 g/dL (11.5-16.0); LYMPHOCYTES # (AUTO) 2.4 10^3/uL (1.0-4.0); LYMPHOCYTES % (AUTO) 20 % (12-44); MEAN CORPUSCULAR HEMOGLOBIN 30 pg (25-34); MEAN CORPUSCULAR HGB CONC 34 g/dL (32-36); MEAN CORPUSCULAR VOLUME 90 fL (80-99); MEAN PLATELET VOLUME 9.5 fL (9.0-12.2); MONOCYTES # (AUTO) 0.6 10^3/uL (0.0-1.0); MONOCYTES % (AUTO) 5 % (0-12); NEUTROPHILS # (AUTO) 8.7 10^3/uL (1.8-7.8); NEUTROPHILS % (AUTO) 73 % (42-75); PLATELET COUNT 320 10^3/uL (130-400)
[2020-10-05 16:57] LABS: CHLORIDE 107 MMOL/L (98-107); POTASSIUM 2.8 MMOL/L (3.6-5.0); SODIUM 142 MMOL/L (135-145)
[2020-10-05 16:58] LABS: ALBUMIN 4.3 GM/DL (3.2-4.5)
[2020-10-05 17:00] LABS: GLUCOSE 159 MG/DL (70-105)
[2020-10-05 17:01] LABS: CARBON DIOXIDE 19 MMOL/L (21-32)
[2020-10-05 17:02] LABS: BILIRUBIN,TOTAL 0.4 MG/DL (0.1-1.0)
[2020-10-05 17:04] LABS: ALKALINE PHOSPHATASE 94 U/L (40-136); CREATININE SERUM 0.71 MG/DL (0.60-1.30); GFR ESTIMATED > 60
[2020-10-05 17:05] LABS: BUN/CREATININE RATIO 17
[2020-10-05 17:06] LABS: ACETAMINOPHEN < 10 UG/ML (10-30)
[2020-10-05 17:07] LABS: ALANINE AMINOTRANSFERASE 13 U/L (0-55); SALICYLATE < 5.0 MG/DL (5.0-20.0)
[2020-10-05 17:29] LABS: TSH (THYROID ANALYZER) 1.89 UIU/ML (0.35-4.94)
[2020-10-05] MEDS ORDERED: POTASSIUM CL 10MEQ/50ML IVPB 50 ML IV ONE (17:30)
--- NOTE | 2020-10-05 18:11 | ED Psychosocial ---
General Chief Complaint: Overdose Stated Complaint: OVERDOSE Nursing Triage Note: PT PRESENTS TO ED WITH COMPLAINTS OF SUICIDAL IDEATION AND TAKING AN OVERDOSE OF HER MEDICATION STARTING THIS AM. PT UNSURE WHICH MEDICATIONS SHE TOOK AND HOW MANY. PT ALSO REPORTS DRINKING ETOH TODAY. Source: patient, EMS Exam Limitations: no limitations History of Present Illness Date Seen by Provider: October 05, 2020 Time Seen by Provider: 16:20 Initial Comments This 34-year-old woman presents to the emergency room via EMS after having taken an unknown quantity of pharmaceuticals and drinking vodka as a stated suicide attempt. Pharmaceuticals in her possession included gabapentin 300 mg, ibuprofen 800 mg, hydroxyzine 25 mg, amoxicillin 500 mg, mirtazapine 15 mg, and sertraline 100 mg. Patient does admit that she took these medications in an effort to kill herself. She has been admittedly depressed recently. She reports prior admissions for psychiatric purposes. She was recently a resident at the [facility]. Allergies and Home Medications Allergies Coded Allergies: sulfamethoxazole (Verified Allergy, Mild, 10/06/20) trimethoprim (Verified Allergy, Mild, 10/06/20) Home Medications Brexpiprazole 2 Mg Tablet, 2 MG PO HS, (Reported) LAST FILLED 06-18-2020 #30 Gabapentin 300 Mg Capsule, 300 MG PO TID, (Reported) LAST FILLED 06-27-2020 #120 Hydroxyzine HCl 50 Mg Tablet, 50 MG PO TID PRN for ANXIETY, (Reported) Sertraline HCl 100 Mg Tablet, 100 MG PO DAILY, (Reported) LAST FILLED 06-18-2020 #45 Trazodone HCl 50 Mg Tablet, 50-100 MG PO HS, (Reported) LAST FILLED 06-18-2020 #60 Patient Home Medication List Home Medication List Reviewed: Yes Review of Systems Constitutional: see HPI EENTM: no symptoms reported Respiratory: no symptoms reported Cardiovascular: no symptoms reported Gastrointestinal: nausea Genitourinary: no symptoms reported : No Musculoskeletal: no symptoms reported Skin: other (Scattered skin sores) Psychiatric/Neurological: See HPI Past Wscdoqg-Alibiy-Hykkqu Hx Past Med/Social Hx: Reviewed Nursing Past Med/Soc Hx Patient Social History Alcohol Use: Regular Use Drug of Choice: METH, THC Smoking Status: Current Everyday Smoker Type Used: Cigarettes Recent Infectious Disease Expo: No Past Medical History Surgeries: Yes (PT HAS SURGICAL SCAR TO LEFT HUMERUS AREA) Respiratory: No (None reported) Cardiac: No (None reported) Neurological: No (None reported) : No Genitourinary: No (None) Gastrointestinal: No (None reported) Musculoskeletal: No (None reported) Endocrine: No (None reported) HEENT: No (None report) Cancer: No (None reported) Psychosocial: Yes (POLYSUBSTANCE ABUSE) Suicide Attempts Physical Exam Vital Signs - First Documented 10/05/20 10/05/20 16:26 19:40 Temp 36.0 Pulse 110 Resp 24 B/P (MAP) 104/78 (87) Pulse Ox 95 O2 Delivery Room Air Capillary Refill : Less Than 3 Seconds Height, Weight, BMI Height: '" Weight: lbs. oz. kg; 31.00 BMI Method: General Appearance: WD/WN, moderate distress (Crying) HEENT: normal ENT inspection, other (Numerous skin sores) Neck: normal inspection Respiratory: lungs clear, normal breath sounds, no respiratory distress Cardiovascular: regular rate, rhythm, no edema, no murmur Gastrointestinal: normal bowel sounds, non tender, soft Extremities: normal inspection, no pedal edema Neurologic/Psychiatric: no motor/sensory deficits, alert, other (Crying, appears intoxicated, reports suicidal ideation with intent to kill herself with overdose today) Skin: normal color, warm/dry, other (Numerous skin sores) Progress/Results/Core Measures Results/Orders Lab Results Laboratory Tests Test 10/05/20 16:20 10/05/20 21:43 10/06/20 02:40 Range/Units White Blood Count 12.0 H 8.1 4.3-11.0 10^3/uL Red Blood Count 5.55 H 4.63 3.80-5.11 10^6/uL Hemoglobin 16.8 H 14.0 11.5-16.0 g/dL Hematocrit 50 43 35-52 % Mean Corpuscular Volume 90 93 80-99 fL Mean Corpuscular Hemoglobin 30 30 25-34 pg Mean Corpuscular Hemoglobin Concent 34 33 32-36 g/dL Red Cell Distribution Width 12.1 12.3 10.0-14.5 % Platelet Count 320 223 130-400 10^3/uL Mean Platelet Volume 9.5 9.6 9.0-12.2 fL Immature Granulocyte % (Auto) 0 0 % Neutrophils (%) (Auto) 73 50 42-75 % Lymphocytes (%) (Auto) 20 37 12-44 % Monocytes (%) (Auto) 5 7 0-12 % Eosinophils (%) (Auto) 1 5 0-10 % Basophils (%) (Auto) 1 1 0-10 % Neutrophils # (Auto) 8.7 H 4.1 1.8-7.8 10^3/uL Lymphocytes # (Auto) 2.4 3.0 1.0-4.0 10^3/uL Monocytes # (Auto) 0.6 0.6 0.0-1.0 10^3/uL Eosinophils # (Auto) 0.1 0.4 H 0.0-0.3 10^3/uL Basophils # (Auto) 0.1 0.1 0.0-0.1 10^3/uL Immature Granulocyte # (Auto) 0.1 0.0 0.0-0.1 10^3/uL Sodium Level 142 144 135-145 MMOL/L Potassium Level 2.8 L 3.7 3.6-5.0 MMOL/L Chloride Level 107 116 H 98-107 MMOL/L Carbon Dioxide Level 19 L 18 L 21-32 MMOL/L Anion Gap 16 H 9 5-14 MMOL/L Blood Urea Nitrogen 12 5 L 7-18 MG/DL Creatinine 0.71 0.85 0.60-1.30 MG/DL Estimat Glomerular Filtration Rate > 60 > 60 BUN/Creatinine Ratio 17 6 Glucose Level 159 H 123 H 70-105 MG/DL Calcium Level 9.0 7.2 L 8.5-10.1 MG/DL Corrected Calcium 8.8 8.5-10.1 MG/DL Total Bilirubin 0.4 0.1-1.0 MG/DL Aspartate Amino Transf (AST/SGOT) 16 5-34 U/L Alanine Aminotransferase (ALT/SGPT) 13 0-55 U/L Alkaline Phosphatase 94 40-136 U/L Total Protein 7.0 6.4-8.2 GM/DL Albumin 4.3 3.2-4.5 GM/DL TSH [place] Testing 1.89 0.35-4.94 UIU/ML Serum Test, Qualitative NEGATIVE NEGATIVE Salicylates Level < 5.0 L 5.0-20.0 MG/DL Acetaminophen Level < 10 L 10-30 UG/ML Serum Alcohol 190 H <10 MG/DL Urine Color YELLOW Urine Clarity CLEAR Urine pH 6.0 5-9 Urine Specific [place] 1.010 L 1.016-1.022 Urine Protein NEGATIVE NEGATIVE Urine Glucose (UA) NEGATIVE NEGATIVE Urine Ketones NEGATIVE NEGATIVE Urine Nitrite NEGATIVE NEGATIVE Urine Bilirubin NEGATIVE NEGATIVE Urine Urobilinogen 1.0 < = 1.0 MG/DL Urine Leukocyte Esterase NEGATIVE NEGATIVE Urine RBC (Auto) NEGATIVE NEGATIVE Urine RBC NONE /HPF Urine WBC NONE /HPF Urine Squamous Epithelial Cells 0-2 /HPF Urine Crystals NONE /LPF Urine Bacteria TRACE /HPF Urine Casts NONE /LPF Urine Mucus NEGATIVE /LPF Urine Culture Indicated NO Urine Opiates Screen NEGATIVE NEGATIVE Urine Oxycodone Screen NEGATIVE NEGATIVE Urine Methadone Screen NEGATIVE NEGATIVE Urine Propoxyphene Screen NEGATIVE NEGATIVE Urine Barbiturates Screen NEGATIVE NEGATIVE Ur Tricyclic Antidepressants Screen NEGATIVE NEGATIVE Urine Phencyclidine Screen NEGATIVE NEGATIVE Urine Amphetamines Screen NEGATIVE NEGATIVE Urine Methamphetamines Screen NEGATIVE NEGATIVE Urine Benzodiazepines Screen NEGATIVE NEGATIVE Urine Cocaine Screen NEGATIVE NEGATIVE Urine Cannabinoids Screen NEGATIVE NEGATIVE Phosphorus Level 1.9 L 2.3-4.7 MG/DL Magnesium Level 1.8 1.6-2.4 MG/DL My Orders Orders - MACRINA CARMICHAEL MD Ua Culture If Indicated (10/05/20 16:21) Cbc With Automated Diff (10/05/20 16:21) Comprehensive Metabolic Panel (10/05/20 16:21) Alcohol (10/05/20 16:21) Acetaminophen (10/05/20 16:21) Salicylate (10/05/20 16:21) Ekg Tracing (10/05/20 16:21) Ed Iv/Invasive Line Start (10/05/20 16:21) Monitor-Rhythm Ecg Trace Only (10/05/20 16:21) Bh Status Checks/Observation Q15M (10/05/20 16:21) Ed Iv/Invasive Line Start (10/05/20 16:21) Ns Iv 1000 Ml (Sodium Chloride 0.9%) (10/05/20 16:30) Charcoal Activated Aqueous (Actidose Aqu (10/05/20 16:30) Famotidine Injection (Pepcid Injection) (10/05/20 16:30) Ondansetron Injection (Zofran Injectio (10/05/20 16:30) Hcg,Qualitative Serum (10/05/20 16:21) Thyroid Analyzer (10/05/20 16:20) Potassium Cl 10meq/50ml Ivpb (Kcl 10 Meq (10/05/20 17:30) Medications Given in ED Vital Signs/I&O 10/05/20 10/05/20 10/05/20 10/05/20 22:00 23:00 23:37 23:59 Temp 37.2 Pulse 76 78 Resp 16 16 B/P (MAP) 93/69 (77) 97/68 (78) Pulse Ox 92 93 O2 Delivery Room Air Room Air Room Air 10/06/20 10/06/20 10/06/20 10/06/20 00:00 01:00 01:14 02:00 Pulse 70 86 84 99 Resp 16 16 16 B/P (MAP) 108/70 (83) 96/44 (61) 100/67 (78) Pulse Ox 93 92 94 O2 Delivery Room Air Room Air Room Air 10/06/20 10/06/20 10/06/20 10/06/20 03:00 03:53 04:00 04:00 Temp 36.9 Pulse 80 84 Resp 16 16 B/P (MAP) 91/62 (72) 91/62 (72) 99/68 (78) Pulse Ox 92 93 O2 Delivery Room Air Room Air Room Air 10/06/20 10/06/20 10/06/20 10/06/20 05:00 06:00 07:00 07:00 Pulse 80 75 81 75 Resp 16 16 15 B/P (MAP) 95/62 (73) 100/69 (79) 124/72 (89) Pulse Ox 95 95 94 O2 Delivery Room Air Room Air Room Air 10/06/20 10/06/20 10/06/20 10/06/20 07:27 07:38 08:00 09:00 Temp 36.7 Pulse 71 78 Resp 15 18 B/P (MAP) 102/64 (77) 110/65 (80) O2 Delivery Room Air Room Air Room Air 10/06/20 00:00 Intake Total 1000 ml Balance 1000 ml Blood Pressure Mean: 87 Progress Progress Note : Time: 18:08 Progress Note Patient was seen and assessed upon arrival. IV fluids were continued as started by EMS. Patient was given activated charcoal but she drank very little of it. Zofran was also administered. She was intermittently somnolent but arousable. At other times she was walking about the room and asking for me to order pizza. She was found to have significant hypokalemia. Potassium replacement was initiated in the ER with a 10 mEq IV dose. Poison control was contacted. They recommended monitoring for bradycardia, tachycardia, [employer] depression, serotonergic effects although unlikely, labile blood pressures that should respond to fluids, GI adverse effects, respiratory insufficiency, tremors, and nystagmus. Treatment is primarily supportive. They recommended an EKG at 4 hours. Initial ECG Impression Date: October 05, 2020 Initial ECG Impression Time: 16:41 Initial ECG Rate: 95 Initial ECG Rhythm: Normal Sinus Initial ECG Intervals: Normal Initial ECG Impression: Normal Comment Normal sinus rhythm with no ST elevation or depression. No abnormal intervals or axis deviation. Departure Communication (Admissions) Time/Spoke to Admitting Phy: 18:02 Dr. Roberson Impression Primary Impression: Suicide attempt Additional Impressions: Alcohol intoxication Qualified Codes: F10.929 - Alcohol use, unspecified with intoxication, unspecified Polypharmacy overdose Hypokalemia Disposition: ADMITTED INPATIENT Condition: Stable Admissions Decision to Admit Reason: Admit from ER (General) Decision to Admit/Date: October 05, 2020 Time/Decision to Admit Time: 16:20 Departure-Patient Inst. Referrals: [facility] (PCP/Family) Primary Care Physician Patient Instructions: ALCOHOL AND SUBSTANCE ABUSE MACRINA CARMICHAEL MD October 05, 2020 18:11
[2020-10-05 19:15] VITALS: BP 92/64
[2020-10-05] MEDS ORDERED: ONDANSETRON 4 MG/2 ML (SDV) Z0FRAN IV PRN (20:45)
[2020-10-05 21:54] LABS: BILIRUBIN,URINE NEGATIVE (NEGATIVE); CLARITY,URINE CLEAR; COLOR,URINE YELLOW; GLUCOSE, URINE (UA) NEGATIVE (NEGATIVE); KETONES,URINE NEGATIVE (NEGATIVE); LEUKOCYTE ESTERASE ,URINE NEGATIVE (NEGATIVE); NITRITE,URINE NEGATIVE (NEGATIVE); PROTEIN,URINE NEGATIVE (NEGATIVE)
[2020-10-05 21:59] LABS: BACTERIA,URINE TRACE /HPF; SQUAMOUS EPITHELIAL CELL,UR 0-2 /HPF
[2020-10-05] MEDS ORDERED: KCL 20 MEQ TAB (K-DUR) PO SCH (22:00)
[2020-10-05 22:04] LABS: AMPHETAMINE SCREEN, URINE NEGATIVE (NEGATIVE); BARBITURATE SCREEN URINE NEGATIVE (NEGATIVE); BENZODIAZEPINES SCREEN URINE NEGATIVE (NEGATIVE); CANNABINOID SCREEN, URINE NEGATIVE (NEGATIVE); COCAINE SCREEN URINE NEGATIVE (NEGATIVE); METHADONE STAT NEGATIVE (NEGATIVE); METHAMPHETAMINE SCREEN URINE S NEGATIVE (NEGATIVE); OPIATE SCREEN URINE NEGATIVE (NEGATIVE); OXYCODONE STAT NEGATIVE (NEGATIVE); PROPOXYPHENE STAT NEGATIVE (NEGATIVE); TRICYCLIC ANTIDEPRESSANTS SCRE NEGATIVE (NEGATIVE)
[2020-10-05] MEDS: NS IV 1000 ML 1,000 ML IV SCH (22:31)
[2020-10-05] MEDS: POTASSIUM CL 10MEQ/50ML IVPB 50 ML IV SCH ×2 (22:31→23:30)
[2020-10-06 03:11] LABS: BASOPHILS # (AUTO) 0.1 10^3/uL (0.0-0.1); BASOPHILS % (AUTO) 1 % (0-10); EOSINOPHILS # (AUTO) 0.4 10^3/uL (0.0-0.3); EOSINOPHILS % (AUTO) 5 % (0-10); HEMATOCRIT 43 % (35-52); LYMPHOCYTES % (AUTO) 37 % (12-44); MEAN CORPUSCULAR HEMOGLOBIN 30 pg (25-34); MEAN CORPUSCULAR HGB CONC 33 g/dL (32-36); MEAN CORPUSCULAR VOLUME 93 fL (80-99); MEAN PLATELET VOLUME 9.6 fL (9.0-12.2); MONOCYTES # (AUTO) 0.6 10^3/uL (0.0-1.0); MONOCYTES % (AUTO) 7 % (0-12); NEUTROPHILS # (AUTO) 4.1 10^3/uL (1.8-7.8); NEUTROPHILS % (AUTO) 50 % (42-75); PLATELET COUNT 223 10^3/uL (130-400); WHITE BLOOD COUNT 8.1 10^3/uL (4.3-11.0)
[2020-10-06 03:32] LABS: BUN/CREATININE RATIO 6; CALCIUM 7.2 MG/DL (8.5-10.1); CARBON DIOXIDE 18 MMOL/L (21-32); CREATININE SERUM 0.85 MG/DL (0.60-1.30); GFR ESTIMATED > 60; GLUCOSE 123 MG/DL (70-105); MAGNESIUM 1.8 MG/DL (1.6-2.4); PHOSPHORUS 1.9 MG/DL (2.3-4.7); POTASSIUM 3.7 MMOL/L (3.6-5.0); SODIUM 144 MMOL/L (135-145)
[2020-10-06 03:43] LABS: CHLORIDE 116 MMOL/L (98-107)
[2020-10-06] MEDS: POTASSIUM CL 10MEQ/50ML IVPB 50 ML IV SCH (03:47)
[2020-10-06] MEDS: MAGNESIUM 1 GM/100 ML IVPB 100 ML IV SCH (03:47)
[2020-10-06] MEDS: KCL 20 MEQ TAB (K-DUR) PO SCH (03:47)
[2020-10-06] MEDS: NS IV 1000 ML 1,000 ML IV SCH ×4 (03:53→20:22)
[2020-10-06] MEDS: FAMOTIDINE 20MG/2ML IV (PEPCID) IVP SCH ×2 (08:22→20:19)
--- NOTE | 2020-10-06 12:50 | History & Physical-Hospitalist ---
History of Present Illness HPI/Chief Complaint This 34-year-old woman presents to the emergency room via EMS after having taken an unknown quantity of pharmaceuticals and drinking vodka as a stated suicide attempt. Pharmaceuticals in her possession included gabapentin 300 mg, ibuprofen 800 mg, hydroxyzine 25 mg, amoxicillin 500 mg, mirtazapine 15 mg, and sertraline 100 mg. Patient does admit that she took these medications in an effort to kill herself. She has been admittedly depressed recently. She reports prior admissions for psychiatric purposes. She was recently a resident at the [facility].Upon my arrival patient reports that she is still thinking a bout suicide and is amenable to transfer for inpatient psychiatric evaluation and treatment. She voices no other complaints. Denies abdominal pain nausea and was sleeping peacefully before I woke her for the interview. Date Seen 10/06/20 Time Seen by a Provider: 06:30 Attending Physician Susan Valentino MD [facility] Referring Physician Date of Admission October 05, 2020 at 18:05 Home Medications & Allergies Home Medications Reviewed patient Home Medication Reconciliation performed by pharmacy medication reconciliations voip network technician and/or nursing. Patients Allergies have been reviewed. Allergies Allergies Coded Allergies sulfamethoxazole (Verified Allergy, Mild, 10/06/20) trimethoprim (Verified Allergy, Mild, 10/06/20) Patient Social History Smoking Status: Current Everyday Smoker Immunizations Up To Date Influenza Vaccine Up-to-Date: No; Not Current Review of Systems Constitutional: see HPI Physical Exam Physical Exam Vital Signs Vital Signs - First Documented 10/05/20 10/05/20 16:26 19:40 Temp 36.0 Pulse 110 Resp 24 B/P (MAP) 104/78 (87) Pulse Ox 95 O2 Delivery Room Air Capillary Refill : Less Than 3 Seconds Height, Weight, BMI Height: '" Weight: lbs. oz. kg; 31.00 BMI Method: General Appearance: No Apparent Distress Respiratory: Chest Non Tender, Lungs Clear, Normal Breath Sounds, No Accessory Muscle Use, No Respiratory Distress Cardiovascular: Regular Rate, Rhythm, No Edema, No Gallop, No JVD, No Murmur, Normal Peripheral Pulses Gastrointestinal: Normal Bowel Sounds, No Organomegaly, No Pulsatile Mass, Non Tender, Soft Extremity: Normal Capillary Refill, Normal Inspection, Normal Range of Motion, Non Tender, No Calf Tenderness, No Pedal Edema Neurologic/Psychiatric: Oriented x3, No Motor/Sensory Deficits, Depressed Affect Results Results/Procedures Labs Laboratory Tests 10/05/20 16:20 10/06/20 02:40 Patient resulted labs reviewed. Assessment/Plan Admission Diagnosis 1. Suicide gesture patient medically stable for psychiatric dispensation. She is amenable to inpatient therapy and options are being investigated. Currently she is on a waiting list at the [facility] with possible transfer later today or tomorrow. 2. Past history of polysubstance abuse including methamphetamine and alcoholism urine drug screen unremarkable on this admission. Admission Status: Observation SUSAN VALENTINO MD October 06, 2020 12:49
[2020-10-06] MEDS ORDERED: NICOTINE 21 MG (NICODERM) PATCH ONE (18:11)
[2020-10-06] MEDS: NEO/POLY/BAC (NEOSPORIN) OINT 15 GM TUBE TOP SCH (20:19)
[2020-10-06] MEDS ORDERED: fluCOnazole (DIFLUCAN) 100 MG TAB PO ONE (21:00)
[2020-10-07 06:02] LABS: BASOPHILS # (AUTO) 0.1 10^3/uL (0.0-0.1); BASOPHILS % (AUTO) 1 % (0-10); EOSINOPHILS # (AUTO) 0.6 10^3/uL (0.0-0.3); EOSINOPHILS % (AUTO) 7 % (0-10); HEMATOCRIT 45 % (35-52); LYMPHOCYTES # (AUTO) 2.2 10^3/uL (1.0-4.0); LYMPHOCYTES % (AUTO) 24 % (12-44); MEAN CORPUSCULAR HEMOGLOBIN 30 pg (25-34); MEAN CORPUSCULAR HGB CONC 33 g/dL (32-36); MEAN CORPUSCULAR VOLUME 91 fL (80-99); MEAN PLATELET VOLUME 9.7 fL (9.0-12.2); MONOCYTES # (AUTO) 0.8 10^3/uL (0.0-1.0); MONOCYTES % (AUTO) 8 % (0-12); NEUTROPHILS # (AUTO) 5.6 10^3/uL (1.8-7.8); NEUTROPHILS % (AUTO) 60 % (42-75); PLATELET COUNT 233 10^3/uL (130-400); WHITE BLOOD COUNT 9.3 10^3/uL (4.3-11.0)
[2020-10-07 06:22] LABS: BUN/CREATININE RATIO 11; CALCIUM 9.1 MG/DL (8.5-10.1); CARBON DIOXIDE 22 MMOL/L (21-32); CHLORIDE 109 MMOL/L (98-107); CREATININE SERUM 0.75 MG/DL (0.60-1.30); GFR ESTIMATED > 60; GLUCOSE 111 MG/DL (70-105); MAGNESIUM 1.7 MG/DL (1.6-2.4); PHOSPHORUS 2.4 MG/DL (2.3-4.7); POTASSIUM 3.7 MMOL/L (3.6-5.0); SODIUM 140 MMOL/L (135-145)
[2020-10-07] MEDS: MAGNESIUM 1 GM/100 ML IVPB 100 ML IV SCH (06:34)
[2020-10-07] MEDS: POTASSIUM CL 10MEQ/50ML IVPB 50 ML IV SCH (06:34)
[2020-10-07] MEDS: KCL 20 MEQ TAB (K-DUR) PO SCH (06:35)
[2020-10-07] MEDS: NS IV 1000 ML 1,000 ML IV SCH (06:35)
[2020-10-07] MEDS: NEO/POLY/BAC (NEOSPORIN) OINT 15 GM TUBE TOP SCH (09:25)
[2020-10-07] MEDS ORDERED: NF-DOCO10C TP (10:26)
[2020-10-07] MEDS ORDERED: TRIA15CR TP (10:26)
--- NOTE | 2020-10-07 10:26 | Discharge Summary ---
Discharge Summary Hospital Course Was the Problem List Reviewed?: Yes Problems/Dx: (1) Suicide attempt Status: Acute (2) Alcohol intoxication Status: Acute Qualifiers: Qualified Codes: F10.929 - Alcohol use, unspecified with intoxication, unspecified (3) Hypokalemia Status: Acute (4) Polysubstance abuse Status: Acute (5) Altered mental status associated with intoxication Status: Acute (6) Alcohol use Status: Acute Hospital Course Date of Admission: October 05, 2020 at 18:05 Admission Diagnosis : Family Physician/Provider: Center[facility] Date of Discharge: 10/07/20 Discharge Diagnosis: Suicide attempt, OD, Alcoholism, suspected herpetic skin lesions Hospital Course: Hospital course: Pt had a brief hospital course when she was admitted for poly-pharmacy overdose with alcohol intoxication and some sort of herpes outbreak. She remained stable, no longer had suicidal ideation, was re-screened by mental health who agreed to discharge home, she will go to live with her sponsor and enter detox on 10/10 and she will remain on Abreva and Triamcinolone cream for the skin lesions. Labs and Pending Lab Test: Laboratory Tests 10/06/20 16:21: Coronavirus 2019 (MARÍA) Not Detected 10/07/20 05:22: White Blood Count 9.3, Red Blood Count 4.95, Hemoglobin 15.0, Hematocrit 45, Mean Corpuscular Volume 91, Mean Corpuscular Hemoglobin 30, Mean Corpuscular Hem oglobin Concent 33, Red Cell Distribution Width 12.2, Platelet Count 233, Mean Platelet Volume 9.7, Immature Granulocyte % (Auto) 1, Neutrophils (%) (Auto) 60, Lymphocytes (%) (Auto) 24, Monocytes (%) (Auto) 8, Eosinophils (%) (Auto) 7, Basophils (%) (Auto) 1, Neutrophils # (Auto) 5.6, Lymphocytes # (Auto) 2.2, Monocytes # (Auto) 0.8, Eosinophils # (Auto) 0.6H, Basophils # (Auto) 0.1, Immature Granulocyte # (Auto) 0.1, Sodium Level 140, Potassium Level 3.7, Chloride Level 109H, Carbon Dioxide Level 22, Anion Gap 9, Blood Urea Nitrogen 8, Creatinine 0.75, Estimat Glomerular Filtration Rate > 60, BUN/Creatinine Ratio 11, Glucose Level 111H, Calcium Level 9.1, Phosphorus Level 2.4, Magnesium Level 1.7 Home Meds Active Triamcinolone Acetonide 0.5% Cream (Triamcinolone Acetonide) 15 Gm Cream..g. 15 Gm TP BID Abreva (Docosanol) 1 Tube Cream.gm. 1 Tube TP TID Reported Neurontin (Gabapentin) 300 Mg Capsule 300 Mg PO TID LAST FILLED 06-27-2020 #120 Rexulti (Brexpiprazole) 2 Mg Tablet 2 Mg PO HS LAST FILLED 06-18-2020 #30 Trazodone HCl 50 Mg Tablet 50-100 Mg PO HS LAST FILLED 06-18-2020 #60 Sertraline HCl 100 Mg Tablet 100 Mg PO DAILY LAST FILLED 06-18-2020 #45 Hydroxyzine HCl 50 Mg Tablet 50 Mg PO TID PRN Assessment/Pt Instructions Alcohol rehab as planned 10/10/20 Discharge Planning: <30 minutes discharge planning Discharge Instructions Discharge Diet: No Restrictions Activity as Tolerated: Yes Discharge Physical Examination Vital Signs Vital Signs Date Time Temp Pulse Resp B/P (MAP) Pulse Ox O2 Delivery O2 Flow Rate FiO2 10/07/20 09:00 Room Air 10/07/20 07:14 36.4 76 16 129/91 (104) 98 General Appearance: No Apparent Distress, WD/WN, Chronically ill Respiratory: Lungs Clear Cardiovascular: Regular Rate, Rhythm Neurologic/Psychiatric: Alert, Oriented x3 Allergies: Coded Allergies: sulfamethoxazole (Verified Allergy, Mild, 10/06/20) trimethoprim (Verified Allergy, Mild, 10/06/20) Discharge Summary Date of Admission October 05, 2020 at 18:05 Date of Discharge Discharge Date: October 07, 2020 Admission Diagnosis 1. Suicide gesture patient medically stable for psychiatric dispensation. She is amenable to inpatient therapy and options are being investigated. Currently she is on a waiting list at the [facility] with possible transfer later today or tomorrow. 2. Past history of polysubstance abuse including methamphetamine and alcoholism urine drug screen unremarkable on this admission. JARRED HARPER DO October 07, 2020 10:26
[2020-10-07] MEDS ORDERED: DOCOSANOL 10 % CREAM (ABREVA) 2 GM TP SCH (10:30)
[2020-10-07] MEDS ORDERED: TRIAMCINOLONE 0.1% CR (KENALOG) 15 GM TUBE TOP SCH (10:30)
== END 2020-10-07 11:45 | disposition home or self-care (01) ==
LOC: EDUNIT# 16:18 → ER 16:20 → ICU 18:05 → 4TH 10-06 14:16
PROVIDERS: ADMIT Internal Medicine; ATTEND Internal Medicine
DX: T14.91XA Suicide attempt, initial encounter (principal); F10.929 Alcohol use, unspecified with intoxication, unspecified; E87.6 Hypokalemia; F19.10 Other psychoactive substance abuse, uncomplicated; F32.9 Major depressive disorder, single episode, unspecified; T39.312A Poisoning by propionic acid derivatives, intentional self-harm, initial encounter; T43.592A Poisoning by other antipsychotics and neuroleptics, intentional self-harm, initial encounter; T36.0X2A Poisoning by penicillins, intentional self-harm, initial encounter; T43.022A Poisoning by tetracyclic antidepressants, intentional self-harm, initial encounter; T43.222A Poisoning by selective serotonin reuptake inhibitors, intentional self-harm, initial encounter; Z79.899 Other long term (current) drug therapy; F17.210 Nicotine dependence, cigarettes, uncomplicated; Z88.2 Allergy status to sulfonamides; Z88.1 Allergy status to other antibiotic agents
CPT/HCPCS: 36415; 80048; 80053; 80306; 80320; 80329; 81000; 83735; 84100; 84443; 84703; 85025; 87635; 93005; 93041; G0378

== ENCOUNTER 2021-01-01 10:23 | Emergency (ER) | payer MEDICAID ==
[~2021-01-01] VITALS: Ht 160 cm; Wt 84.4 kg
[~2021-01-01 10:23] MED LIST changes: +NF-DOCO10C TP; +TRIA15CR TP
[2021-01-01 10:24] VITALS: BP 117/97
--- NOTE | 2021-01-01 11:27 | ED General ---
General Chief Complaint: Psych/Social Disorder Stated Complaint: DRUG ABUSE Nursing Triage Note: PT AMB TO [facility] W C/O SKIN ISSUES. PT REPORTS THAT SHE'S BEEN DRINKING TODAY AND HAS STUFF FALLING OUT OF HER HAIR IN ADDITION TO "SPLINTERS" ALL OVER HER BODY. PT APPEARS TO HAVE SCABS SCATTERED OVER HER BODY. PT IS ACTIVELY PICKING AT SCABS. PT REPORTS THAT HER NEIGHBOR PUT TUMERIC ALL OVER HER BODY IN ATTEMPT TO REMOVE THE SPLINTERS. PT HAS A YELLOW TINT ON FACE, HANDS, AND NECK WHICH APPEARS TO BE THE TUMERIC. PT DENIES PAIN BUT STATES HER "SKIN IS ON FIRE." PT REPORTS THAT SHES ALLERGIC TO IODINE. Source of Information: Patient Exam Limitations: No Limitations (LAWSON PEREZ APRN) History of Present Illness Date Seen by Provider: Jan 01, 2021 Time Seen by Provider: 11:25 Initial Comments To ER with reports of skin issues. She has had some alcohol today. She reports fiberglass coming out of her hair follicles after using some methamphetamine. She would like something to help her relax and sleep. Timing/Duration: 1-2 Days Severity: Moderate Associated Systoms: Denies Symptoms (LAWSON PEREZ APRN) Allergies and Home Medications Allergies Coded Allergies: sulfamethoxazole (Verified Allergy, Mild, 10/06/20) trimethoprim (Verified Allergy, Mild, 10/06/20) Home Medications Brexpiprazole 2 Mg Tablet, 2 MG PO HS, (Reported) LAST FILLED 06-18-2020 #30 Docosanol 1 Tube Cream.gm., 1 TUBE TP TID Prescribed by: JARRED HARPER on 10/07/20 1026 Gabapentin 300 Mg Capsule, 300 MG PO TID, (Reported) LAST FILLED 06-27-2020 #120 Hydroxyzine HCl 50 Mg Tablet, 50 MG PO TID PRN for ANXIETY, (Reported) Sertraline HCl 100 Mg Tablet, 100 MG PO DAILY, (Reported) LAST FILLED 06-18-2020 #45 Trazodone HCl 50 Mg Tablet, 50-100 MG PO HS, (Reported) LAST FILLED 06-18-2020 #60 Triamcinolone Acetonide 15 Gm Cream..g., 15 GM TP BID Prescribed by: JARRED HARPER on 10/07/20 1026 Patient Home Medication List Home Medication List Reviewed: Yes (LAWSON PEREZ APRN) Review of Systems Review of Systems Constitutional: see HPI EENTM: see HPI Respiratory: no symptoms reported Cardiovascular: no symptoms reported Genitourinary: no symptoms reported Musculoskeletal: no symptoms reported Skin: no symptoms reported Psychiatric/Neurological: See HPI (LAWSON PEREZ APRN) Past Hwbanvh-Eecrhi-Uctrud Hx Patient Social History Tobacco Use?: Yes Tobacco type used: Cigarettes Smoking Status: Current Everyday Smoker Substance use?: Yes Substance type: Methamphetamine, Other Additional substance use comme: "ANYTHING I CAN GET I'M A POLYSUBSTANCE ABUSER" Substance frequency: Daily Alcohol Use?: Yes Alcohol Frequency: Daily Pt feels they are or have been: No (LAWSON PEREZ APRN) Immunizations Up To Date First/Initial COVID19 Vaccinat: 2020 Second COVID19 Vaccination Tristin: 2020 COVID19 Vaccine Management Expert: MODERNA (LAWSON PEREZ APRN) Past Medical History Surgeries: Yes (PT HAS SURGICAL SCAR TO LEFT HUMERUS AREA) Respiratory: No (None reported) Cardiac: No (None reported) Neurological: No (None reported) Genitourinary: No (None) Gastrointestinal: No (None reported) Musculoskeletal: No (None reported) Endocrine: No (None reported) HEENT: No (None report) Cancer: No (None reported) Psychosocial: Yes (POLYSUBSTANCE ABUSE) Suicide Attempts (LAWSON PEREZ APRN) Physical Exam Vital Signs Vital Signs - First Documented 01/01/21 10:24 Temp 37.0 Pulse 114 Resp 22 B/P (MAP) 117/97 (104) Pulse Ox 96 O2 Delivery Room Air (MACRINA CARMICHAEL MD) Vital Signs Capillary Refill : Less Than 3 Seconds (LAWSON PEREZ APRN) Height, Weight, BMI Height: '" Weight: lbs. oz. kg; 32.00 BMI Method: General Appearance: No Apparent Distress, WD/WN Eyes: Bilateral Eye Normal Inspection, Bilateral Eye PERRL HEENT: PERRL/EOMI, TMs Normal Neck: Full Range of Motion, Normal Inspection Respiratory: No Accessory Muscle Use, No Respiratory Distress Cardiovascular: Regular Rate, Rhythm, Normal Peripheral Pulses Gastrointestinal: Normal Bowel Sounds, Non Tender, Soft Extremity: Normal Capillary Refill, Normal Inspection Neurologic/Psychiatric: Alert, Oriented x3 Skin: Normal Color, Warm/Dry, Other (Multiple superficial skin erosions consistent with skin picking behavior. High rate of speech. Flight of ideas.) (LAWSON PEREZ APRN) Progress/Results/Core Measures Suspected Sepsis SIRS Temperature: Pulse: 114 Respiratory Rate: 22 Blood Pressure 117 /97 Mean: 104 (LAWSON PEREZ APRN) Results/Orders Medications Given in ED Current Medications Medications Dose Ordered Sig/Devyn Route Start Time Stop Time Status Last Admin Dose Admin Diazepam 10 mg ONCE ONCE PO 01/01/21 11:30 01/01/21 11:31 DC 01/01/21 11:31 10 MG (MACRINA CARMICHAEL MD) Vital Signs/I&O 01/01/21 10:24 Temp 37.0 Pulse 114 Resp 22 B/P (MAP) 117/97 (104) Pulse Ox 96 O2 Delivery Room Air (MACRINA CARMICHAEL MD) Vital Signs/I&O Capillary Refill : Less Than 3 Seconds (LAWSON PEREZ APRN) Blood Pressure Mean: 104 Departure Impression Primary Impression: Polysubstance abuse Additional Impression: Delusion Disposition: 01 HOME, SELF-CARE Condition: Stable Departure-Patient Inst. Decision time for Depature: 11:26 (LAWSON PEREZ APRN) Referrals: [facility] (PCP/Family) Primary Care Physician Patient Instructions: Polysubstance Use Disorder ATTENDING PHYSICIAN NOTE: I was physically present as attending physician in the emergency department d uring the care of this patient, but I was not directly involved in the decision making or delivery of care for this patient. (MACRINA CARMICHAEL MD) LAWSON PEREZ APRN Jan 01, 2021 11:27 MACRINA CARMICHAEL MD Jan 01, 2021 18:59
[2021-01-01] MEDS ORDERED: DIAZEPAM 5 MG (VALIUM) TABLET PO ONE (11:30)
== END 2021-01-01 11:30 | disposition home or self-care (01) ==
LOC: EDUNIT# 10:25 → ER 10:27
DX: F19.10 Other psychoactive substance abuse, uncomplicated (principal); F22 Delusional disorders; F42.4 Excoriation (skin-picking) disorder; L98.8 Other specified disorders of the skin and subcutaneous tissue; F17.210 Nicotine dependence, cigarettes, uncomplicated; Z91.5 Personal history of self-harm
CPT/HCPCS: 99284

== ENCOUNTER 2021-03-14 11:01 | Outpatient (CLI) | payer SELFPAY ==
[~2021-03-14] VITALS: Ht 160 cm; Wt 89.5 kg
[2021-03-14 10:57] VITALS: BP 95/68
[2021-03-14] MEDS ORDERED: ONDANSETRON 4 MG/2 ML (SDV) Z0FRAN IV PRN (11:15)
[2021-03-14] MEDS ORDERED: ACETAMINOPHEN 500 MG TAB (TYLENOL) PO PRN (11:15)
[2021-03-14] MEDS ORDERED: EPINEPHrine INJECTION 1 MG/ML AMP IM PRN (11:15)
[2021-03-14] MEDS ORDERED: diphenhydrAMINE 50 MG/ML INJ (BENADRYL) IV PRN (11:15)
[2021-03-14] MEDS ORDERED: CASIRIVIMAB/IMDEVIMAB 1,200 MG in NS (IVPB) 250 ML IV ONE (11:15)
[2021-03-14 12:35] VITALS: BP 93/70
== END 2021-03-14 13:04 | disposition home or self-care (01) ==
LOC: INFUSION 11:01
PROVIDERS: ATTEND Nurse Practitioner Family
DX: U07.1 COVID-19 (principal)

== ENCOUNTER 2021-05-13 19:24 | Emergency (ER) | payer SELFPAY ==
[~2021-05-13] VITALS: Ht 160 cm; Wt 82.0 kg
[2021-05-13] MEDS ORDERED: RX-GENTAMICIN SULFATE 0.3% OP 5 ML BTL OP STA (20:07)
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
[2021-05-13] MEDS ORDERED: FLUORESCEIN (FLUOR-I-STRIPS) 1 MG STRP OU ONE (20:15)
[2021-05-13] MEDS ORDERED: BSS 15 ML IR ONE (20:15)
[2021-05-13] MEDS ORDERED: TETRACAINE 0.5% OPHTH SOLN 4 ML BTL (SINGLE DOSE ONLY) OU ONE (20:15)
[2021-05-13] MEDS ORDERED: LIDOCAINE 1% INJ 20 ML 20 ML VIAL INJ ONE (20:30)
[2021-05-13] MEDS ORDERED: KETOROLAC 60 MG/2 ML VIAL IM ONE (20:30)
[2021-05-13] MEDS ORDERED: cefTRIAXone 1,000 MG VIAL IM ONE (20:30)
[2021-05-13 21:02] VITALS: BP 126/80
== END 2021-05-13 21:04 | disposition home or self-care (01) ==
LOC: EDUNIT# 19:24 → ER 19:27
DX: H10.9 Unspecified conjunctivitis (principal)
CPT/HCPCS: 99284

== ENCOUNTER 2021-05-30 15:47 | Emergency (ER) | payer SELFPAY ==
[~2021-05-30] VITALS: Ht 160 cm; Wt 77.0 kg
--- NOTE | 2021-05-30 16:10 | ED General ---
General Stated Complaint: LOWER BACK PAIN, L LEG PAIN,TROUBLE WALKING Source of Information: Patient Exam Limitations: No Limitations History of Present Illness Date Seen by Provider: May 30, 2021 Time Seen by Provider: 16:05 Initial Comments To ER with severe pain over the left sacroiliac joint that began yesterday while sweeping sudden onset. No fever no chills no trauma. No loss of bowel or bladder control. No numbness of her genitals. No history of IV drug use. Timing/Duration: 1-2 Days Severity: Moderate Associated Systoms: Denies Symptoms Allergies and Home Medications Allergies Coded Allergies: sulfamethoxazole (Verified Allergy, Mild, 10/06/20) trimethoprim (Verified Allergy, Mild, 10/06/20) Patient Home Medication List Home Medication List Reviewed: Yes Brexpiprazole (Rexulti) 2 Mg Tablet, 2 MG PO HS, (Reported) Entered as Reported by: JOY CHEN on 08/07/20921 Docosanol (Abreva) 1 Tube Cream.gm., 1 TUBE TP TID Prescribed by: JARRED HARPER on 10/07/20 1026 Gabapentin (Neurontin) 300 Mg Capsule, 300 MG PO TID, (Reported) Entered as Reported by: JOY CHEN on 08/07/20921 Hydrocodone/Acetaminophen (Hydrocodone-Acetamin 5-325 mg) 1 Each Tablet, 1 TAB PO Q4H PRN for PAIN-MODERATE (5-7) Prescribed by: LAWSON PEREZ on 05/30/21 1646 Hydroxyzine HCl (Hydroxyzine HCl) 50 Mg Tablet, 50 MG PO TID PRN for ANXIETY, (Reported) Entered as Reported by: JOY CHEN on 08/07/20921 Naproxen (Naprosyn) 500 Mg Tablet, 500 MG PO BID PRN for PAIN-SEVERE (8-10) Prescribed by: LAWSON PEREZ on 05/30/21 1645 Sertraline HCl (Sertraline HCl) 100 Mg Tablet, 100 MG PO DAILY, (Reported) Entered as Reported by: JOY CHEN on 08/07/20921 Trazodone HCl (Trazodone HCl) 50 Mg Tablet, 50-100 MG PO HS, (Reported) Entered as Reported by: JOY CHEN on 08/07/20921 Triamcinolone Acetonide (Triamcinolone Acetonide 0.5% Cream) 15 Gm Cream..g., 15 GM TP BID Prescribed by: JARRED HARPER on 10/07/20 1026 Review of Systems Review of Systems Constitutional: see HPI EENTM: see HPI Respiratory: no symptoms reported Cardiovascular: no symptoms reported Genitourinary: no symptoms reported Musculoskeletal: no symptoms reported Skin: no symptoms reported Psychiatric/Neurological: No Symptoms Reported Hematologic/Lymphatic: No Symptoms Reported Past Xrppxcu-Owoser-Qzqrzv Hx Immunizations Up To Date First/Initial COVID19 Vaccinat: 2020 Past Medical History Surgeries: Yes (PT HAS SURGICAL SCAR TO LEFT HUMERUS AREA) Respiratory: No (None reported) Cardiac: No (None reported) Neurological: No (None reported) Genitourinary: No (None) Gastrointestinal: No (None reported) Musculoskeletal: No (None reported) Endocrine: No (None reported) HEENT: No (None report) Cancer: No (None reported) Psychosocial: Yes (POLYSUBSTANCE ABUSE) Suicide Attempts Physical Exam Vital Signs Vital Signs - First Documented 05/30/21 16:00 Temp 36.3 Pulse 109 Resp 16 B/P (MAP) 94/79 (84) Pulse Ox 99 O2 Delivery Room Air Capillary Refill : Height, Weight, BMI Height: '" Weight: lbs. oz. kg; 32.00 BMI Method: General Appearance: No Apparent Distress, WD/WN Eyes: Bilateral Eye Normal Inspection, Bilateral Eye PERRL, Bilateral Eye EOMI Neck: Full Range of Motion Respiratory: No Accessory Muscle Use, No Respiratory Distress Gastrointestinal: Normal Bowel Sounds, Non Tender, Soft Extremity: Normal Capillary Refill, Normal Inspection Neurologic/Psychiatric: Alert, Oriented x3 Skin: Normal Color, Warm/Dry, Other (Tender to palpation over the left sacroiliac joint. No rash or ecchymosis) Progress/Results/Core Measures Suspected Sepsis SIRS Temperature: Pulse: Respiratory Rate: Blood Pressure / Mean: Results/Orders My Orders Orders - LAWSON PEREZ APRN Lumbar Spine - 2-3 Views (05/30/21 16:04) Ketorolac Injection (Toradol Injection) (05/30/21 16:15) Hydrocodone/Apap 5/325 Tablet (Lortab 5 (05/30/21 16:15) Medications Given in ED Current Medications Medications Dose Ordered Sig/Devyn Route Start Time Stop Time Status Last Admin Dose Admin Acetaminophen/ Hydrocodone Bitart 1 ea ONCE ONCE PO 05/30/21 16:15 05/30/21 16:16 DC 05/30/21 16:13 1 EA Ketorolac Tromethamine 60 mg ONCE ONCE IM 05/30/21 16:15 05/30/21 16:16 DC 05/30/21 16:13 60 MG Vital Signs/I&O 05/30/21 16:00 Temp 36.3 Pulse 109 Resp 16 B/P (MAP) 94/79 (84) Pulse Ox 99 O2 Delivery Room Air Capillary Refill : Departure Impression Primary Impression: Acute low back pain Disposition: HOME, SELF-CARE Condition: Stable Departure-Patient Inst. Decision time for Depature: 16:44 Referrals: [facility] [place]) Primary Care Physician Patient Instructions: Low Back Pain ED Add. Discharge Instructions: 1. Return to ER for any concerns 2. Follow-up with your doctor next week. Scripts Hydrocodone/Acetaminophen (Hydrocodone-Acetamin 5-325 mg) 1 Each Tablet 1 TAB PO Q4H PRN for PAIN-MODERATE (5-7), #10 TAB Prov: LAWSON PEREZ APRN 05/30/21 Naproxen (Naprosyn) 500 Mg Tablet 500 MG PO BID PRN for PAIN-SEVERE (8-10), #30 TAB 0 Refills Prov: LAWSON PEREZ APRN 05/30/21 Work/School Note: Work Release Form Date Seen in the Emergency Department: May 30, 2021 Return to Work: May 31, 2021 LAWSON PEREZ APRN May 30, 2021 16:10
[2021-05-30] MEDS ORDERED: KETOROLAC 60 MG/2 ML VIAL IM ONE (16:15)
[2021-05-30] MEDS ORDERED: HYDROcodone/APAP 5 MG/325 MG (LORTAB) TAB PO ONE (16:15)
[2021-05-30] MEDS ORDERED: ACHD5005 PO (16:45)
[2021-05-30] MEDS ORDERED: NAPR-1071 PO (16:45)
--- NOTE | 2021-05-30 17:00 | Diagnostic Imaging Report ---
EXAMINATION: Lumbosacral spine 2 or 3 views HISTORY: Low back pain and left-sided pain COMPARISON: None available. FINDINGS: There is a mild dextroconvex scoliosis. There is normal height and alignment of the vertebral bodies with no subluxations or fractures. Intervertebral disc spaces preserved. IMPRESSION: 1. Mild scoliotic deformity. No acute osseous abnormality. Dictated by: Dictated on workstation # [id number]
[2021-05-30 17:13] VITALS: BP 114/84
== END 2021-05-30 17:15 | disposition home or self-care (01) ==
LOC: EDUNIT# 15:47 → ER 15:50
DX: M54.50 Low back pain, unspecified (principal)
CPT/HCPCS: 72100

== ENCOUNTER 2022-06-21 22:09 | Emergency (ER) | payer MEDICAID ==
[~2022-06-21] VITALS: Ht 160 cm; Wt 78.0 kg
[~2022-06-21 22:09] MED LIST changes: +ACHD5005 PO; +NAPR-1071 PO
--- NOTE | 2022-06-21 22:28 | ED Integumentary General ---
General Chief Complaint: Allergic Reaction Stated Complaint: ALLERGIC REACTION Nursing Triage Note: Patient states she is having an allergic reaction to something but is unsure what. She advised she was given a prescription of Keflex for a skin infection from [facility] and is currently being treated for pink eye. Patient states it is difficult to swallow. Source: patient (SOMEWHAT DIFFICULT HISTORIAN, GIVES SOME CONVOLUTED AND CONFLICTING INFORMATION) History of Present Illness Date Seen by Provider: Jun 21, 2022 Time Seen by Provider: 22:15 Initial Comments PT ARRIVES VIA POV FROM HOME--STATES HER MOTHER DROVE HER C/O "ALLERGIC REACTION" TO SOMETHING--SHE DOES NOT KNOW WHAT CAUSED IT. C/O BURNING AND REDNESS AND IRRITATION TO ENTIRE FACE FOR THE LAST 3 DAYS SHE DOES NOT HAVE THIS ON OTHER PARTS OF HER BODY--ONLY HER FACE--NO NECK OR S CALP OR EAR INVOLVEMENT. SHE STATES SHE "STARTED WITH PINK EYE" --HAD REDNESS TO RIGHT EYE SINCE LAST Wednesday06/16/22 SHE WENT TO [facility] ON WEDNESDAY, AND WAS PRESCRIBED AN EYE DROP. SHE STATES "THEN MY PINK EYE SPREAD TO MY WHOLE FACE" , SHE WENT BACK THE NEXT DAY BECAUSE HER WHOLE FACE WAS RED. SHE WAS PRESCRIBED KEFLEX AND MUPIROCIN SHE STATES IT IS NOT GETTING BETTER. SHE IS STILL USING EYE DROPS AND TAKING KEFLEX SHE WEARS CONTACTS. HAS BEEN WEARING THE SAME PAIR THROUGHOUT ALL OF THIS, AND STATES SHE DOES NOT HAVE ANY MORE CONTACTS, AND SHE DOES NOT HAVE ANY GLASSES. C/O SLIGHTLY BLURRY VISION IN RIGHT EYE SINCE THIS STARTED. NO EYE PAIN, JUST FEELS A LITTLE IRRITATED. EYE IS WATERY, BUT NO PURULENT DRAINAGE. SHE STATES SHE HAS BEEN CLEANING HER WHOLE FACE WITH HIBICLENS AND HAS BEEN USING NEOSPORIN ALL OVER HER FACE, AND HER SYMPTOMS ARE GETTING WORSE. SHE STATES IT FEELS LIKE THERE IS SOMETHING IN HER THROAT AND IT IS HARD TO SWALLOW--YET PT BRINGS MULTIPLE DRINKS INTO ER WITH HER, AND IS WANTING TO DRINK ON ARRIVAL. SHE ALSO STATES SHE FEELS LIKE THERE IS "FIBERGLASS" IN HER HAIR, AND SHE CAN SEE IT COMING OUT OF HER HAIR FOLLICLES. "AND IT'S ON MY SKIN TOO" --SHE DENIES COMING IN CONTACT WITH ANY FIBERGLASS SHE IS NOT HAVING DIFFICULTY BREATHING. NO GI SYMPTOMS. SHE DENIES ANY NEW SOAPS, SHAMPOOS, ETC. SHE STATES SHE CLEANS HOUSES, AND DENIES ANY NEW CLEANING PRODUCTS. PT IS WEARING A VELCRO SPLINT ON RIGHT ARM--STATES SHE HAS "TENDONITIS" SHE STATES SHE TOOK TRAMADOL AT 1500 AND 2030 TODAY PT STATES SHE GOT DRUNK AND SMOKED METH ON "WEDNESDAY" PCP: MANUEL Allergies and Home Medications Allergies Coded Allergies: sulfamethoxazole (Verified Allergy, Mild, 10/06/20) trimethoprim (Verified Allergy, Mild, 10/06/20) Patient Home Medication List Home Medication List Reviewed: Yes Brexpiprazole (Rexulti) 2 Mg Tablet, 2 MG PO HS, (Reported) Entered as Reported by: JOY CHEN on 08/07/20921 Clindamycin HCl (Clindamycin HCl) 300 Mg Capsule, 300 MG PO QID Prescribed by: JEAN-CLAUDE SILVA on 06/21/222316 Docosanol (Abreva) 1 Tube Cream.gm., 1 TUBE TP TID Prescribed by: JARRED HARPER on 10/07/20 1026 Gabapentin (Neurontin) 300 Mg Capsule, 300 MG PO TID, (Reported) Entered as Reported by: JOY CHEN on 08/07/20921 Hydrocodone/Acetaminophen (Hydrocodone-Acetamin 5-325 mg) 1 Each Tablet, 1 TAB PO Q4H PRN for PAIN-MODERATE (5-7) Prescribed by: LAWSON PEREZ on 05/30/21 164 Hydroxyzine HCl (Hydroxyzine HCl) 50 Mg Tablet, 50 MG PO TID PRN for ANXIETY, (Reported) Entered as Reported by: JOY CHEN on 08/07/20921 Naproxen (Naprosyn) 500 Mg Tablet, 500 MG PO BID PRN for PAIN-SEVERE (8-10) Prescribed by: LAWSON PEREZ on 05/30/21 164 Prednisone (Prednisone) 20 Mg Tab, 40 MG PO DAILY Prescribed by: JEAN-CLAUDE SILVA on 06/21/222310 Sertraline HCl (Sertraline HCl) 100 Mg Tablet, 100 MG PO DAILY, (Reported) Entered as Reported by: JOY CHEN on 08/07/20921 Trazodone HCl (Trazodone HCl) 50 Mg Tablet, 50-100 MG PO HS, (Reported) Entered as Reported by: JOY CHEN on 08/07/20 0922 Triamcinolone Acet (Triamcinolone Acetonide 0.1% Cream) 0.1 % Cr, 15 GM TP TID Prescribed by: JEAN-CLAUDE SILVA on 06/21/22 2311 Triamcinolone Acetonide (Triamcinolone Acetonide 0.5% Cream) 15 Gm Cream..g., 15 GM TP BID Prescribed by: JARRED HARPER on 10/07/20 1026 Review of Systems Review of Systems Constitutional: no symptoms reported; No fever EENTM: see HPI Respiratory: no symptoms reported; No cough, No short of breath Cardiovascular: no symptoms reported Gastrointestinal: no symptoms reported Genitourinary: no symptoms reported Musculoskeletal: see HPI Skin: see HPI Psychiatric/Neurological: See HPI, Anxiety Endocrine: No Symptoms Reported Hematologic/Lymphatic: No Symptoms Reported Past Vavjqeg-Agespn-Gwlfhn Hx Patient Social History Tobacco Use?: Yes Tobacco type used: Cigarettes Smoking Status: Current Everyday Smoker Use of E-Cig and/or Vaping dev: Yes E-Cig or Vaping type used: Nicotine, Other Additional E-Cig or Vaping: METH Use of E-Cig and/or Vaping Jose: Current Everyday User Substance use?: Yes Substance type: Methamphetamine, Marijuana Substance frequency: Daily Alcohol Use?: Yes Alcohol type: Beer, Hard Liquor Alcohol Frequency: Once in a while Immunizations Up To Date First/Initial COVID19 Vaccinat: 2020 Second COVID19 Vaccination Tristin: 2020 Third COVID19 Vaccination Date: 2020 Past Medical History Surgery/Hospitalization HX: pfo, hemangioma removal, ortho Surgeries: Yes (PT HAS SURGICAL SCAR TO LEFT HUMERUS AREA) Respiratory: No (None reported) Cardiac: No (None reported) Neurological: No (None reported) Last Menstrual Period: May 21, 2022 Genitourinary: No (None) Gastrointestinal: No (None reported) Musculoskeletal: No (None reported) Endocrine: No (None reported) HEENT: No (None report) Cancer: No (None reported) Psychosocial: Yes (POLYSUBSTANCE ABUSE; OVERDOSES/SUICIDE ATTEMPTS) Suicide Attempts Family Medical History SOCIAL HISTORY: -SMOKES 1/2-1 PPD. SHE ALSO VAPES NICOTINE -ETOH--ABUSE/HEAVY USE -DRUGS--EXTENSIVE METH USE. STATES SHE SMOKES IT AND VAPES IT. ALSO THC USE PAST SURGICAL HISTORY: -RIGHT UPPER ARM HEMANGIOMA REMOVED Physical Exam Vital Signs Vital Signs - First Documented 06/21/22 22:12 Temp 36.8 Pulse 116 Resp 18 B/P (MAP) 142/81 (101) Pulse Ox 96 O2 Delivery Room Air Capillary Refill : Less Than 3 Seconds General Appearance: WD/WN, no apparent distress, other (CONSTANT MOVEMENTS; PT IS VERY UNKEMPT AND MALODOROUS, REEKS OF CIGARETTES AND ALCOHOL. SHE HAS HER HEAD WRAPPED IN A T-SHIRT, AND HAS A STOCKING CAP OVER THAT AND THEN THE BALLESTEROS OF HER SWEATER ON OVER THAT. CONSTANTLY RUBBING HER FACE AND HER EYES, ESPECIALLY HER RIGHT EYE. CONSTANT GUTTERAL NOISES AND THROAT CLEARING. ) HEENT: PERRL/EOMI, other (RIGHT > LEFT CONJUNCTIVA INFLAMED, SLIGHTLY WATERY, NO PURULENT DRAINAGE. ENTIRE FACE WITH VARYING DEGRESS OF ERYTHEMA AND OVERLYING SKIN IS DRY AND SOMEWHAT SCALY. SHE HAS EXTENSIVE SORES/SCARS/SCABS TO FACE, NE CK, CHEST, ARMS AND HANDS. POOR DENTITION. RIGHT EYE HAS MILD PERIORBITAL SWELLING. ) Neck: non-tender, full range of motion, supple, normal inspection Cardiovascular: regular rate, rhythm, no murmur Respiratory: normal breath sounds, no respiratory distress Gastrointestinal: soft Back: no CVA tenderness Extremities: normal range of motion, no pedal edema, normal capillary refill, other (RIGHT ARM WITH VELCRO WRIST/FOREARM SPLINT IN PLACE. 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 ) Skin: normal color, warm/dry, other ( ABOVE. EXAMINED PT'S SCALP, AND THERE IS NO IDENTIFIABLE FOREIGN MATERIAL, NO IRRITATION NOTED ANYWHERE ON SCALP, AND NO LICE OR EVIDENCE OF FUNGAL INFECTION. HER HAIR IS MULTIPLE LENGTHS--CUT OFF IN PATCHES SCATTERED ALL OVER HER HEAD. ) Progress/Results/Core Measures Results/Orders Lab Results Laboratory Tests Test 06/21/22 21:22 Range/Units White Blood Count 11.1 H 4.3-11.0 10^3/uL Red Blood Count 5.03 3.80-5.11 10^6/uL Hemoglobin 15.3 11.5-16.0 g/dL Hematocrit 44 35-52 % Mean Corpuscular Volume 88 80-99 fL Mean Corpuscular Hemoglobin 30 25-34 pg Mean Corpuscular Hemoglobin Concent 35 32-36 g/dL Red Cell Distribution Width 12.3 10.0-14.5 % Platelet Count 339 130-400 10^3/uL Mean Platelet Volume 9.5 9.0-12.2 fL Immature Granulocyte % (Auto) 0 % Neutrophils (%) (Auto) 59 42-75 % Lymphocytes (%) (Auto) 31 12-44 % Monocytes (%) (Auto) 6 0-12 % Eosinophils (%) (Auto) 3 0-10 % Basophils (%) (Auto) 1 0-10 % Neutrophils # (Auto) 6.6 1.8-7.8 10^3/uL Lymphocytes # (Auto) 3.5 1.0-4.0 10^3/uL Monocytes # (Auto) 0.6 0.0-1.0 10^3/uL Eosinophils # (Auto) 0.3 0.0-0.3 10^3/uL Basophils # (Auto) 0.1 0.0-0.1 10^3/uL Immature Granulocyte # (Auto) 0.0 0.0-0.1 10^3/uL Sodium Level 140 135-145 MMOL/L Potassium Level 4.2 3.6-5.0 MMOL/L Chloride Level 111 H 98-107 MMOL/L Carbon Dioxide Level 13 L 21-32 MMOL/L Anion Gap 16 H 5-14 MMOL/L Blood Urea Nitrogen 14 7-18 MG/DL Creatinine 0.72 0.60-1.30 MG/DL Estimat Glomerular Filtration Rate 111 BUN/Creatinine Ratio 19 Glucose Level 82 70-105 MG/DL Calcium Level 9.2 8.5-10.1 MG/DL Corrected Calcium 9.0 8.5-10.1 MG/DL Total Bilirubin 0.6 0.1-1.0 MG/DL Aspartate Amino Transf (AST/SGOT) 37 H 5-34 U/L Alanine Aminotransferase (ALT/SGPT) 18 0-55 U/L Alkaline Phosphatase 80 40-136 U/L Total Protein 7.3 6.4-8.2 GM/DL Albumin 4.3 3.2-4.5 GM/DL Serum Test, Qualitative NEGATIVE NEGATIVE Serum Alcohol 74 H <10 MG/DL My Orders Orders - RICARDO,JEAN-CLAUDE K DO Ed Iv/Invasive Line Start (06/21/22 22:26) Monitor-Rhythm Ecg Trace Only (06/21/22 22:26) Alcohol (06/21/22 22:26) Cbc With Automated Diff (06/21/22 22:26) Comprehensive Metabolic Panel (06/21/22 22:26) Hcg,Qualitative Serum (06/21/22 22:26) Methylprednisolone Sod Succ (Solu-Medrol (06/21/22 22:30) Diphenhydramine Injection (Benadryl Inje (06/21/22 22:30) Famotidine Injection (Pepcid Injection) (06/21/22 22:30) Rx-Tobra/Dexameth Ophth Susp (Rx-Tobrade (06/21/22 23:11) Medications Given in ED Current Medications Medications Dose Ordered Sig/Devyn Route Start Time Stop Time Status Last Admin Dose Admin Diphenhydramine HCl 25 mg ONCE ONCE IVP 06/21/22 22:30 06/21/22 22:31 DC 06/21/22 22:39 25 MG Famotidine 40 mg ONCE ONCE IVP 06/21/22 22:30 06/21/22 22:31 DC 06/21/22 22:39 40 MG Methylprednisolone Sodium Succinate 125 mg ONCE ONCE IVP 06/21/22 22:30 06/21/22 22:31 DC 06/21/22 22:39 125 MG Vital Signs/I&O 06/21/22 06/21/22 22:12 23:20 Temp 36.8 36.7 Pulse 116 101 Resp 18 18 B/P (MAP) 142/81 (101) 119/96 Pulse Ox 96 99 O2 Delivery Room Air Room Air Blood Pressure Mean: 101 Progress Progress Note : Progress Note GIVEN: -BENADRYL -SOLU-MEDROL -PEPCID FACE IS LESS ERYTHEMATOUS, AND HAS DECREASED RIGHT PERIORBITAL SWELLING 2250--PT'S MOTHER IS NOW IN ROOM WITH HER, AND IS SIMPLY WATCHING PT IS VERY VIGOROUSLY SCRUBBING HER ENTIRE FACE WITH BOTH HANDS USING 2 SCENTED SANITIZING WIPES--SHE HAS USED MULTIPLE WIPES WHILE HERE IN ER. ADVISED PT TO STOP RUBBING HER FACE AND TO STOP USING THE WIPES, THEY ARE LIKELY CAUSING AND ARE DEFINITELY CONTRIBUTING TO HER SYMPTOMS DISCUSSED ANTICIPATED COURSE, STRESSED THE IMPORTANCE OF NOT RUBBING OR TOUCHING HER FACE OR EYES, NOT USING ANY WIPES ON HER FACE, AND NOT USING ANY PRODUCTS NOT PRESCRIBED TO HER. STRESSED THE IMPORTANCE OF FOLLOW UP WITH [facility] FOR RECHECK. AT DISMISSAL, PT STATES "I DID SOME DUMB-ASS SHIT THAT CAUSED THIS" Departure Impression Primary Impression: Facial dermatitis Additional Impressions: Conjunctivitis, right eye Methamphetamine use Alcohol abuse Disposition: HOME, SELF-CARE Condition: Stable Departure-Patient Inst. Decision time for Depature: 23:05 Referrals: [facility] (PCP/Family) Primary Care Physician Patient Instructions: Conjunctivitis (Pinkeye) (DC), Skin Rash (DC), Contact Dermatitis Add. Discharge Instructions: USE ONLY WATER ON YOUR FACE FOR NOW. DO NOT SCRUB OR RUB OR SCRATCH OR TOUCH YOUR FACE, OR ANY SORES ON YOUR BODY DO NOT USE ANY KIND OF WIPES ON YOUR FACE OR BODY DO NOT PUT SOAP ON YOUR FACE RIGHT NOW. ONLY USE THE PRESCRIBED MEDICATIONS. DO NOT PUT ANYTHING ELSE ON YOUR FACE RIGHT NOW. TAKE YOUR HYDROXYZINE 50 MG EVERY 6 HOURS FOR ITCHING. STOP YOUR CURRENT EYE DROP. START USING THE TOBRADEX EYE DROP PRESCRIBED CONTINUE USING MUPIROCIN OINTMENT, ONLY TO THE SORES STOP TAKING KEFLEX. START USING NEW ANTIBIOTIC, CLINDAMYCIN PRESCRIBED [facility]3 DAYS FOR FURTHER CARE. RETURN TO ER IF SYMPTOMS WORSEN. All discharge instructions reviewed with patient and/or family. Voiced understanding. Scripts Clindamycin HCl (Clindamycin HCl) 300 Mg Capsule 300 MG PO QID for 10 Days, #40 CAP Prov: JEAN-CLAUDE SILVA DO 06/21/22 Triamcinolone Acet (Triamcinolone Acetonide 0.1% Cream) 0.1 % Cr 15 GM TP TID, #1 TUBE Prov: JEAN-CLAUDE SILVA DO 06/21/22 Prednisone (Prednisone) 20 Mg Tab 40 MG PO DAILY, #6 TAB 0 Refills Prov: JEAN-CLAUDE SILVA DO 06/21/22 Work/School Note: Work Release Form Date Seen in the Emergency Department: Jun 21, 2022 Return to Work: Jun 23, 2022 JEAN-CLAUDE SILVA DO Jun 21, 2022 22:28
[2022-06-21] MEDS ORDERED: diphenhydrAMINE 50 MG/ML INJ (BENADRYL) IVP ONE (22:30)
[2022-06-21] MEDS ORDERED: FAMOTIDINE 20MG/2ML IV (PEPCID) IVP ONE (22:30)
[2022-06-21] MEDS ORDERED: methylPREDNISolone 125 MG (Solu-MEDROL) VIAL IVP ONE (22:30)
[2022-06-21 22:47] LABS: BASOPHILS # (AUTO) 0.1 10^3/uL (0.0-0.1); BASOPHILS % (AUTO) 1 % (0-10); EOSINOPHILS # (AUTO) 0.3 10^3/uL (0.0-0.3); EOSINOPHILS % (AUTO) 3 % (0-10); HEMATOCRIT 44 % (35-52); HEMOGLOBIN 15.3 g/dL (11.5-16.0); LYMPHOCYTES # (AUTO) 3.5 10^3/uL (1.0-4.0); LYMPHOCYTES % (AUTO) 31 % (12-44); MEAN CORPUSCULAR HEMOGLOBIN 30 pg (25-34); MEAN CORPUSCULAR HGB CONC 35 g/dL (32-36); MEAN CORPUSCULAR VOLUME 88 fL (80-99); MEAN PLATELET VOLUME 9.5 fL (9.0-12.2); MONOCYTES # (AUTO) 0.6 10^3/uL (0.0-1.0); MONOCYTES % (AUTO) 6 % (0-12); NEUTROPHILS # (AUTO) 6.6 10^3/uL (1.8-7.8); NEUTROPHILS % (AUTO) 59 % (42-75); PLATELET COUNT 339 10^3/uL (130-400); WHITE BLOOD COUNT 11.1 10^3/uL (4.3-11.0)
[2022-06-21 22:57] LABS: ALBUMIN 4.3 GM/DL (3.2-4.5); POTASSIUM 4.2 MMOL/L (3.6-5.0)
[2022-06-21 22:59] LABS: CALCIUM 9.2 MG/DL (8.5-10.1)
[2022-06-21 23:00] LABS: TOTAL PROTEIN 7.3 GM/DL (6.4-8.2)
[2022-06-21 23:02] LABS: BILIRUBIN,TOTAL 0.6 MG/DL (0.1-1.0)
[2022-06-21 23:04] LABS: CREATININE SERUM 0.72 MG/DL (0.60-1.30)
[2022-06-21] MEDS ORDERED: TR1C15 TP (23:11)
[2022-06-21] MEDS ORDERED: PRD20T PO (23:11)
[2022-06-21] MEDS ORDERED: RX-TOBRA/DEXAMETH (TOBRADEX) OP. SUSP 2.5 ML BTL OU STA (23:11)
[2022-06-21] MEDS ORDERED: CLIN-144 PO (23:17)
[2022-06-21 23:20] VITALS: BP 119/96
== END 2022-06-21 23:23 | disposition home or self-care (01) ==
LOC: EDUNIT# 22:09 → ER 22:10
DX: L30.8 Other specified dermatitis (principal); H10.9 Unspecified conjunctivitis; F15.90 Other stimulant use, unspecified, uncomplicated; F10.10 Alcohol abuse, uncomplicated; F17.210 Nicotine dependence, cigarettes, uncomplicated; Z88.2 Allergy status to sulfonamides
CPT/HCPCS: 36415; 80053; 80320; 84703; 85025; 93041

== ENCOUNTER 2022-08-01 13:27 | Emergency (ER) | payer MEDICAID ==
[~2022-08-01] VITALS: Ht 160 cm; Wt 72.5 kg
[~2022-08-01 13:27] MED LIST changes: +CLIN-144 PO; +PRD20T PO; +TR1C15 TP
[2022-08-01] MEDS ORDERED: CLINDAMYCIN 150 MG (CLEOCIN) CAP PO STA (13:56)
[2022-08-01] MEDS ORDERED: diphenhydrAMINE 25 MG TAB (BENADRYL) PO ONE (14:00)
[2022-08-01] MEDS ORDERED: KETOROLAC 30 MG/ML VIAL IM ONE (14:00)
--- NOTE | 2022-08-01 14:00 | ED Integumentary General ---
General Chief Complaint: Skin/Wound Problems Stated Complaint: SKIN INFECTIONS Nursing Triage Note: PT REPORTS TO ED WITH SKIN C/O. PER PT SHE NOTICED RASH ON RT HAND THAT STARTED ABOUT 20 DAYS AGO. PER PT SHE SQUEEZES THEM AND THE DRAINAGE SPREADS THE RASH. PER PT THE RASH HURTS. PT AMB. TO FT1 WITHOUT DIFFICULTY. Source: patient Exam Limitations: no limitations History of Present Illness Date Seen by Provider: Aug 01, 2022 Time Seen by Provider: 13:57 Initial Comments Patient is a 36-year-old female presents ED with diffuse red crusty rash. She states rash started 20 days ago. Rash started on her hands. This had spread over the past 3 to 4 days throughout her legs, chest, back and scalp. She states the rash is red, crusty with purulent drainage. Similar rash in the past and states she has been treated for antiviral, fungal infection, and bacterial infection. She denies having a wound culture. She reports drainage to a lesion to her scalp. Denies any fever, chills, nausea vomit, diarrhea. She denies history of HIV, hep C. She states she has been seen at [facility] multiple times for this rash. Has been applying topical anti-itch cream, anti- inflammatories and soaking in vinegar bath without much improvement. Denies chest pain, cough, shortness of breath, weight loss, night sweats. Patient states the rash itches. Patient reports using ice 20 days ago and 2 days ago. This is a form of speed Allergies and Home Medications Allergies Coded Allergies: sulfamethoxazole (Verified Allergy, Mild, 10/06/20) trimethoprim (Verified Allergy, Mild, 10/06/20) Patient Home Medication List Home Medication List Reviewed: Yes Brexpiprazole (Rexulti) 2 Mg Tablet, 2 MG PO HS, (Reported) Entered as Reported by: JOY CHEN on 08/07/20 0922 Cephalexin (Cephalexin) 500 Mg Tablet, 500 MG PO QID Prescribed by: JANAK PIZARRO on 08/01/22 1444 Clindamycin HCl (Clindamycin HCl) 300 Mg Capsule, 300 MG PO QID Prescribed by: JEAN-CLAUDE SILVA on 06/21/22 2317 Docosanol (Abreva) 1 Tube Cream.gm., 1 TUBE TP TID Prescribed by: JARRED HARPER on 10/07/20 1026 Doxycycline Monohydrate (Doxycycline Monohydrate) 100 Mg Tablet, 100 MG PO BID Prescribed by: JANAK PIZARRO on 08/01/22 1444 Gabapentin (Neurontin) 300 Mg Capsule, 300 MG PO TID, (Reported) Entered as Reported by: JOY CHEN on 08/07/20921 Hydrocodone/Acetaminophen (Hydrocodone-Acetamin 5-325 mg) 1 Each Tablet, 1 TAB PO Q4H PRN for PAIN-MODERATE (5-7) Prescribed by: LAWSON PEREZ on 05/30/21 1646 Hydroxyzine HCl (Hydroxyzine HCl) 50 Mg Tablet, 50 MG PO TID PRN for ANXIETY, (Reported) Entered as Reported by: JOY CHEN on 08/07/20921 Hydroxyzine HCl (Hydroxyzine HCl) 25 Mg Tablet, 25 MG PO Q6H PRN for ITCHING Prescribed by: JANAK PIZARRO on 08/01/22 1432 Naproxen (Naprosyn) 500 Mg Tablet, 500 MG PO BID PRN for PAIN-SEVERE (8-10) Prescribed by: LAWSON PEREZ on 05/30/21 1645 Neomycn/Baci Zn/Pmyx Bs/Pramox (Neosporin + Pain Relief Oint) 3.5-10K-10 Oint...g., 28.3 GM TP BID Prescribed by: JANAK PIZARRO on 08/01/22 1435 Prednisone (Prednisone) 20 Mg Tab, 40 MG PO DAILY Prescribed by: JEAN-CLAUDE SILVA on 06/21/222310 Sertraline HCl (Sertraline HCl) 100 Mg Tablet, 100 MG PO DAILY, (Reported) Entered as Reported by: JOY CHEN on 08/07/20921 Trazodone HCl (Trazodone HCl) 50 Mg Tablet, 50-100 MG PO HS, (Reported) Entered as Reported by: JOY CHEN on 08/07/20921 Triamcinolone Acet (Triamcinolone Acetonide 0.1% Cream) 0.1 % Cr, 15 GM TP TID Prescribed by: JEAN-CLAUDE SILVA on 06/21/222310 Triamcinolone Acetonide (Triamcinolone Acetonide 0.5% Cream) 15 Gm Cream..g., 15 GM TP BID Prescribed by: JARRED HARPER on 10/07/20 1026 Discontinued Medications Clindamycin HCl (Clindamycin HCl) 300 Mg Capsule, 300 MG PO QID Prescribed by: JANAK PIZARRO on 08/01/22 1432 Review of Systems Review of Systems Constitutional: No chills, No diaphoresis, No malaise, No weakness EENTM: No ear pain, No blurred vision, No hoarseness, No mouth pain, No mouth swelling Respiratory: No cough, No dyspnea on exertion Cardiovascular: No chest pain Gastrointestinal: No abdominal pain, No diarrhea, No nausea, No vomiting Genitourinary: No decreased output, No discharge Musculoskeletal: No back pain, No joint pain Skin: change in color, pruritus All Other Systems Reviewed Negative Unless Noted: Yes Past Kuxvryl-Eyrxuy-Evvfjj Hx Patient Social History Tobacco Use?: No Use of E-Cig and/or Vaping dev: Yes E-Cig or Vaping type used: Nicotine Use of E-Cig and/or Vaping Jose: Current Everyday User Substance use?: Yes Substance type: Marijuana Substance frequency: Once in a while Alcohol Use?: No Pt feels they are or have been: No Immunizations Up To Date Influenza Vaccine Up-to-Date: No; Not Current First/Initial COVID19 Vaccinat: 2020 Second COVID19 Vaccination Tristin: 2020 Third COVID19 Vaccination Date: 2020 Past Medical History Surgery/Hospitalization HX: pfo, hemangioma removal, ortho Surgeries: Yes (PT HAS SURGICAL SCAR TO LEFT HUMERUS AREA) Respiratory: No (None reported) Cardiac: No (None reported) Neurological: No (None reported) Last Menstrual Period: Apr 07, 2022 Genitourinary: No (None) Gastrointestinal: No (None reported) Musculoskeletal: No (None reported) Endocrine: No (None reported) HEENT: No (None report) Cancer: No (None reported) Psychosocial: Yes (POLYSUBSTANCE ABUSE; OVERDOSES/SUICIDE ATTEMPTS) Suicide Attempts Family Medical History SOCIAL HISTORY: -SMOKES 1/2-1 PPD. SHE ALSO VAPES NICOTINE -ETOH--ABUSE/HEAVY USE -DRUGS--EXTENSIVE METH USE. STATES SHE SMOKES IT AND VAPES IT. ALSO THC USE PAST SURGICAL HISTORY: -RIGHT UPPER ARM HEMANGIOMA REMOVED Physical Exam Vital Signs Vital Signs - First Documented 08/01/22 13:32 Temp 36.6 Pulse 90 B/P (MAP) 121/84 (96) Pulse Ox 100 O2 Delivery Room Air Capillary Refill : General Appearance: WD/WN, no apparent distress HEENT: PERRL/EOMI, normal ENT inspection, TMs normal, pharynx normal Neck: non-tender, full range of motion, supple Cardiovascular: regular rate, rhythm, no edema, no gallop, no JVD Respiratory: chest non-tender, lungs clear, normal breath sounds Gastrointestinal: normal bowel sounds, non tender, soft, no organomegaly Back: no CVA tenderness Extremities: normal range of motion 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 Mild drainage from the lesion to the posterior scalp. No oral lesions but does have a lesion to her lip. No bullae, vesicles, petechiae.) Progress/Results/Core Measures Results/Orders Lab Results Laboratory Tests Test 08/01/22 14:13 Range/Units White Blood Count 6.9 4.3-11.0 10^3/uL Red Blood Count 4.93 3.80-5.11 10^6/uL Hemoglobin 14.9 11.5-16.0 g/dL Hematocrit 44 35-52 % Mean Corpuscular Volume 89 80-99 fL Mean Corpuscular Hemoglobin 30 25-34 pg Mean Corpuscular Hemoglobin Concent 34 32-36 g/dL Red Cell Distribution Width 12.8 10.0-14.5 % Platelet Count 298 130-400 10^3/uL Mean Platelet Volume 9.4 9.0-12.2 fL Immature Granulocyte % (Auto) 0 % Neutrophils (%) (Auto) 59 42-75 % Lymphocytes (%) (Auto) 29 12-44 % Monocytes (%) (Auto) 7 0-12 % Eosinophils (%) (Auto) 4 0-10 % Basophils (%) (Auto) 1 0-10 % Neutrophils # (Auto) 4.1 1.8-7.8 10^3/uL Lymphocytes # (Auto) 2.0 1.0-4.0 10^3/uL Monocytes # (Auto) 0.5 0.0-1.0 10^3/uL Eosinophils # (Auto) 0.3 0.0-0.3 10^3/uL Basophils # (Auto) 0.0 0.0-0.1 10^3/uL Immature Granulocyte # (Auto) 0.0 0.0-0.1 10^3/uL Erythrocyte Sedimentation Rate 6 0-20 MM/HR Sodium Level 141 135-145 MMOL/L Potassium Level 3.3 L 3.6-5.0 MMOL/L Chloride Level 107 98-107 MMOL/L Carbon Dioxide Level 21 21-32 MMOL/L Anion Gap 13 5-14 MMOL/L Blood Urea Nitrogen 14 7-18 MG/DL Creatinine 0.71 0.60-1.30 MG/DL Estimat Glomerular Filtration Rate 113 BUN/Creatinine Ratio 20 Glucose Level 89 70-105 MG/DL Calcium Level 8.8 8.5-10.1 MG/DL C-Reactive Protein High Sensitivity 0.41 0.00-0.50 MG/DL My Orders Orders - WENDI REEVES Cbc With Automated Diff (08/01/22 13:55) Hs C Reactive Protein (08/01/22 13:55) Erythrocyte Sedimentation Rate (08/01/22 13:55) Ketorolac Injection (Toradol Injection) (08/01/22 14:00) Diphenhydramine Tablet (Benadryl Tablet) (08/01/22 14:00) Clindamycin Capsule (Cleocin Capsule) (08/01/22 13:56) Wound Culture (08/01/22 14:01) Basic Metabolic Panel (08/01/22 14:12) Medications Given in ED Current Medications Medications Dose Ordered Sig/Devyn Route Start Time Stop Time Status Last Admin Dose Admin Diphenhydramine HCl 25 mg ONCE ONCE PO 08/01/22 14:00 08/01/22 14:01 DC 08/01/22 14:01 25 MG Ketorolac Tromethamine 30 mg ONCE ONCE IM 08/01/22 14:00 08/01/22 14:01 DC 08/01/22 14:02 30 MG Vital Signs/I&O 08/01/22 08/01/22 13:32 14:49 Temp 36.6 36.6 Pulse 90 90 B/P (MAP) 121/84 (96) 121/84 Pulse Ox 100 100 O2 Delivery Room Air Room Air Blood Pressure Mean: 96 Departure Communication (PCP) Patient with a diffuse erythematous crusty purulent rash. Concerning for staph. History of drug use. She reports using ice. Denies of any antibiotic use prior, medications prior. No sloughing of the skin. No oral mucosal lesions. Denies history of HIV. No weight changes, weight loss, night sweats. Lab work was otherwise unremarkable. Culture currently pending of one of the wounds. She initially was given clindamycin and states that clindamycin does not work as well with a history of similar rash. Will discharge with doxycycline and Keflex covering MRSA. Hydroxyzine for itching. Topical Neosporin for the wounds. If any worsening symptoms return back to ED for further evaluation. Follow-up your PCP in 3 to 4 days for reevaluation of the rash. Impression Primary Impression: Rash Disposition: 01 HOME, SELF-CARE Condition: Stable Departure-Patient Inst. Decision time for Depature: 14:30 Referrals: [facility] (PCP/Family) Primary Care Physician Patient Instructions: Skin Rash ED Add. Discharge Instructions: Continue treating the rash. Topical antibiotic ointment. Avoid scratching. Allow time for the lesions to heal. Follow-up your primary care physician in 4 to 5 days for reevaluation. All discharge instructions reviewed with patient and/or family. Voiced understanding. Scripts Cephalexin (Cephalexin) 500 Mg Tablet 500 MG PO QID for 7 Days, #28 TAB Prov: WENDI REEVES 08/01/22 Doxycycline Monohydrate (Doxycycline Monohydrate) 100 Mg Tablet 100 MG PO BID for 10 Days, #20 TAB Prov: WENDI REEVES 08/01/22 Neomycn/Baci Zn/Pmyx Bs/Pramox (Neosporin + Pain Relief Oint) 3.5-10K-10 Oint...g. 28.3 GM TP BID, #2 EA Prov: WENDI REEVES 08/01/22 Hydroxyzine HCl (Hydroxyzine HCl) 25 Mg Tablet 25 MG PO Q6H PRN for ITCHING, #14 TAB Prov: WENDI REEVES 08/01/22 WENDI REEVES Aug 01, 2022 14:00
[2022-08-01 14:15] LABS: BASOPHILS % (AUTO) 1 % (0-10); EOSINOPHILS # (AUTO) 0.3 10^3/uL (0.0-0.3); EOSINOPHILS % (AUTO) 4 % (0-10); HEMATOCRIT 44 % (35-52); HEMOGLOBIN 14.9 g/dL (11.5-16.0); LYMPHOCYTES % (AUTO) 29 % (12-44); MEAN CORPUSCULAR HEMOGLOBIN 30 pg (25-34); MEAN CORPUSCULAR HGB CONC 34 g/dL (32-36); MEAN CORPUSCULAR VOLUME 89 fL (80-99); MEAN PLATELET VOLUME 9.4 fL (9.0-12.2); MONOCYTES # (AUTO) 0.5 10^3/uL (0.0-1.0); MONOCYTES % (AUTO) 7 % (0-12); NEUTROPHILS # (AUTO) 4.1 10^3/uL (1.8-7.8); NEUTROPHILS % (AUTO) 59 % (42-75); PLATELET COUNT 298 10^3/uL (130-400); WHITE BLOOD COUNT 6.9 10^3/uL (4.3-11.0)
[2022-08-01 14:30] LABS: POTASSIUM 3.3 MMOL/L (3.6-5.0)
[2022-08-01 14:31] LABS: CALCIUM 8.8 MG/DL (8.5-10.1)
[2022-08-01] MEDS ORDERED: CLIN-144 PO (14:32)
[2022-08-01] MEDS ORDERED: HYDR-700 PO (14:32)
[2022-08-01] MEDS ORDERED: NEOM28.34 TP (14:35)
[2022-08-01 14:36] LABS: CREATININE SERUM 0.71 MG/DL (0.60-1.30)
[2022-08-01] MEDS ORDERED: DOXY100T31 PO (14:44)
[2022-08-01] MEDS ORDERED: CEPH500T PO (14:44)
[2022-08-01 14:49] VITALS: BP 121/84
[2022-08-01 14:50] LABS: ERYTHROCYTE SEDIMENTATION RATE 6 MM/HR (0-20)
== END 2022-08-01 14:50 | disposition home or self-care (01) ==
LOC: EDUNIT# 13:27 → ER 13:28
DX: R21 Rash and other nonspecific skin eruption (principal); F17.210 Nicotine dependence, cigarettes, uncomplicated; F17.290 Nicotine dependence, other tobacco product, uncomplicated; Z88.2 Allergy status to sulfonamides; Z28.310 Unvaccinated for COVID-19
CPT/HCPCS: 36415; 80048; 85025; 85652; 86141; 87070; 87077; 87205; 99284

== ENCOUNTER 2022-08-18 21:35 | Emergency (ER) | payer MEDICAID ==
[~2022-08-18] VITALS: Ht 161.5 cm; Wt 72.6 kg
[~2022-08-18 21:35] MED LIST changes: +CEPH500T PO; +DOXY100T31 PO; +HYDR-700 PO; +NEOM28.34 TP
--- NOTE | 2022-08-18 21:55 | ED Integumentary General ---
General Chief Complaint: Skin/Wound Problems Stated Complaint: SKIN SORES Nursing Triage Note: PATIENT REPORTS WOUNDS FROM THE TOP OF HER HEAD TO HER FEET SORES, OPEN, PAINFUL, DRAINING. STATES SEEN HERE AUG 01, RECIEIVED TX. STATES COMPLETED TX. VERBALIZED SHE DID SHOWER YESTERDAY. STATES SORES PAINFUL. Source: patient Allergies and Home Medications Allergies Coded Allergies: sulfamethoxazole (Verified Allergy, Mild, 10/06/20) trimethoprim (Verified Allergy, Mild, 10/06/20) Patient Home Medication List Brexpiprazole (Rexulti) 2 Mg Tablet, 2 MG PO HS, (Reported) Entered as Reported by: JOY CHEN on 08/07/20921 Cephalexin (Cephalexin) 500 Mg Tablet, 500 MG PO QID Prescribed by: JANAK PIZARRO on 08/01/22 1444 Clindamycin HCl (Clindamycin HCl) 300 Mg Capsule, 300 MG PO QID Prescribed by: JEAN-CLAUDE SILVA on 06/21/22 2317 Docosanol (Abreva) 1 Tube Cream.gm., 1 TUBE TP TID Prescribed by: JARRED HARPER on 10/07/20 1026 Doxycycline Monohydrate (Doxycycline Monohydrate) 100 Mg Tablet, 100 MG PO BID Prescribed by: JANAK PIZARRO on 08/01/22 1444 Gabapentin (Neurontin) 300 Mg Capsule, 300 MG PO TID, (Reported) Entered as Reported by: JOY CHEN on 08/07/20921 Hydrocodone/Acetaminophen (Hydrocodone-Acetamin 5-325 mg) 1 Each Tablet, 1 TAB PO Q4H PRN for PAIN-MODERATE (5-7) Prescribed by: LAWSON PEREZ on 05/30/21 1646 Hydroxyzine HCl (Hydroxyzine HCl) 50 Mg Tablet, 50 MG PO TID PRN for ANXIETY, (Reported) Entered as Reported by: JOY CHEN on 08/07/20 09 Hydroxyzine HCl (Hydroxyzine HCl) 25 Mg Tablet, 25 MG PO Q6H PRN for ITCHING Prescribed by: JANAK PIZARRO on 08/01/22 1432 Naproxen (Naprosyn) 500 Mg Tablet, 500 MG PO BID PRN for PAIN-SEVERE (8-10) Prescribed by: LAWSON PEREZ on 05/30/21 1645 Neomycn/Baci Zn/Pmyx Bs/Pramox (Neosporin + Pain Relief Oint) 3.5-10K-10 Oint...g., 28.3 GM TP BID Prescribed by: JANAK PIZARRO on 08/01/22 1435 Prednisone (Prednisone) 20 Mg Tab, 40 MG PO DAILY Prescribed by: JEAN-CLAUDE SILVA on 06/21/22 231 Sertraline HCl (Sertraline HCl) 100 Mg Tablet, 100 MG PO DAILY, (Reported) Entered as Reported by: JOY CHEN on 08/07/20 0922 Trazodone HCl (Trazodone HCl) 50 Mg Tablet, 50-100 MG PO HS, (Reported) Entered as Reported by: JOY CHEN on 08/07/20921 Triamcinolone Acet (Triamcinolone Acetonide 0.1% Cream) 0.1 % Cr, 15 GM TP TID Prescribed by: JEAN-CLAUDE SILVA on 06/21/222310 Triamcinolone Acetonide (Triamcinolone Acetonide 0.5% Cream) 15 Gm Cream..g., 15 GM TP BID Prescribed by: JARRED HARPER on 10/07/20 1026 Past Lxsadny-Vjqfmb-Xzrpwy Hx Immunizations Up To Date First/Initial COVID19 Vaccinat: 2020 Second COVID19 Vaccination Tristin: 2020 Third COVID19 Vaccination Date: 2020 Past Medical History Surgery/Hospitalization HX: pfo, hemangioma removal, ortho Surgeries: Yes (PT HAS SURGICAL SCAR TO LEFT HUMERUS AREA) Respiratory: No (None reported) Cardiac: No (None reported) Neurological: No (None reported) Genitourinary: No (None) Gastrointestinal: No (None reported) Musculoskeletal: No (None reported) Endocrine: No (None reported) HEENT: No (None report) Cancer: No (None reported) Psychosocial: Yes (POLYSUBSTANCE ABUSE; OVERDOSES/SUICIDE ATTEMPTS) Suicide Attempts Family Medical History SOCIAL HISTORY: -SMOKES 1/2-1 PPD. SHE ALSO VAPES NICOTINE -ETOH--ABUSE/HEAVY USE -DRUGS--EXTENSIVE METH USE. STATES SHE SMOKES IT AND VAPES IT. ALSO THC USE PAST SURGICAL HISTORY: -RIGHT UPPER ARM HEMANGIOMA REMOVED Physical Exam Vital Signs Vital Signs - First Documented 3/14/23 21:40 Temp 37.0 Pulse 101 Resp 18 B/P (MAP) 123/98 (106) Pulse Ox 98 O2 Delivery Room Air Capillary Refill : Less Than 3 Seconds Progress/Results/Core Measures Results/Orders Vital Signs/I&O 08/18/22 21:40 Temp 37.0 Pulse 101 Resp 18 B/P (MAP) 123/98 (106) Pulse Ox 98 O2 Delivery Room Air Blood Pressure Mean: 106 Departure Impression Primary Impression: MULTIPLE SKIN SORES Disposition: HOME, SELF-CARE Condition: Stable Departure-Patient Inst. Decision time for Depature: 21:54 Referrals: [facility] (PCP/Family) Primary Care Physician Patient Instructions: Methicillin-Resistant Staphylococcus aureus (MRSA), Wound Care (DC) Add. Discharge Instructions: CLEAN WOUNDS TWICE A DAY WITH CETAPHIL OR HIBICLENS, APPLY PRESCRIPTION ANTIBIOTIC OINTMENT AND FRESH DRESSING TO WOUNDS TWICE A DAY AVOID TOUCHING YOUR SKIN OTHERWISE FOLLOW UP WITH [facility] THIS WEEK FOR FURTHER CARE All discharge instructions reviewed with patient and/or family. Voiced understanding. Scripts Levofloxacin (Levofloxacin) 500 Mg Tablet 500 MG PO DAILY, #7 TAB 0 Refills Prov: JEAN-CLAUDE SILVA DO 08/18/22 Mupirocin (Mupirocin) 2 % Oint...g. 22 GM TP BID, #1 TUBE Prov: JEAN-CLAUDE SILVA DO 08/18/22 JEAN-CLAUDE SILVA DO Aug 18, 2022 21:55
[2022-08-18] MEDS ORDERED: LEVO-55 PO (22:01)
[2022-08-18] MEDS ORDERED: MUPI22OI2 TP (22:01)
[2022-08-18 22:15] VITALS: BP 123/98
== END 2022-08-18 22:15 | disposition home or self-care (01) ==
LOC: EDUNIT# 21:35 → ER 21:36
DX: L98.9 Disorder of the skin and subcutaneous tissue, unspecified (principal); F17.210 Nicotine dependence, cigarettes, uncomplicated; F17.290 Nicotine dependence, other tobacco product, uncomplicated; Z88.2 Allergy status to sulfonamides; Z28.310 Unvaccinated for COVID-19
CPT/HCPCS: 99283

== ENCOUNTER 2022-10-03 12:12 | Emergency (ER) | payer MEDICAID ==
[~2022-10-03] VITALS: Ht 160 cm; Wt 75.0 kg
[~2022-10-03 12:12] MED LIST changes: +LEVO-55 PO; +MUPI22OI2 TP
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
[2022-10-03] MEDS ORDERED: OLANZapine 5 MG ODT (ZyPREXA ZYDIS) PO ONE (13:15)
[2022-10-03 14:12] LABS: BASOPHILS # (AUTO) 0.1 10^3/uL (0.0-0.1); BASOPHILS % (AUTO) 1 % (0-10); EOSINOPHILS # (AUTO) 0.2 10^3/uL (0.0-0.3); EOSINOPHILS % (AUTO) 2 % (0-10); HEMATOCRIT 47 % (35-52); HEMOGLOBIN 15.6 g/dL (11.5-16.0); LYMPHOCYTES # (AUTO) 1.7 10^3/uL (1.0-4.0); LYMPHOCYTES % (AUTO) 21 % (12-44); MEAN CORPUSCULAR HEMOGLOBIN 31 pg (25-34); MEAN CORPUSCULAR HGB CONC 33 g/dL (32-36); MEAN CORPUSCULAR VOLUME 92 fL (80-99); MEAN PLATELET VOLUME 9.3 fL (9.0-12.2); MONOCYTES # (AUTO) 0.5 10^3/uL (0.0-1.0); MONOCYTES % (AUTO) 6 % (0-12); NEUTROPHILS # (AUTO) 5.8 10^3/uL (1.8-7.8); NEUTROPHILS % (AUTO) 70 % (42-75); PLATELET COUNT 300 10^3/uL (130-400); WHITE BLOOD COUNT 8.2 10^3/uL (4.3-11.0)
[2022-10-03 14:21] LABS: CHLORIDE 108 MMOL/L (98-107); SODIUM 141 MMOL/L (135-145)
[2022-10-03 14:22] LABS: ALBUMIN 4.2 GM/DL (3.2-4.5)
[2022-10-03 14:23] LABS: CALCIUM 9.4 MG/DL (8.5-10.1)
[2022-10-03 14:24] LABS: GLUCOSE 81 MG/DL (70-105)
[2022-10-03 14:25] LABS: CARBON DIOXIDE 21 MMOL/L (21-32); TOTAL PROTEIN 7.3 GM/DL (6.4-8.2)
[2022-10-03 14:26] LABS: BILIRUBIN,TOTAL 0.4 MG/DL (0.1-1.0)
[2022-10-03 14:28] LABS: ALKALINE PHOSPHATASE 115 U/L (40-136); CREATININE SERUM 0.67 MG/DL (0.60-1.30); GFR ESTIMATED 116
[2022-10-03 14:29] LABS: BUN/CREATININE RATIO 10
[2022-10-03 14:29] LABS: BILIRUBIN,URINE NEGATIVE (NEGATIVE); CLARITY,URINE CLEAR; COLOR,URINE YELLOW; GLUCOSE, URINE (UA) NEGATIVE (NEGATIVE); KETONES,URINE NEGATIVE (NEGATIVE); LEUKOCYTE ESTERASE ,URINE 1+ (NEGATIVE); NITRITE,URINE NEGATIVE (NEGATIVE); PH,URINE 6.5 (5-9); PROTEIN,URINE NEGATIVE (NEGATIVE)
[2022-10-03] MEDS ORDERED: diphenhydrAMINE 25 MG TAB (BENADRYL) PO ONE (14:30)
[2022-10-03 14:31] LABS: ALANINE AMINOTRANSFERASE 21 U/L (0-55); SALICYLATE < 5.0 MG/DL (5.0-20.0)
[2022-10-03 14:33] LABS: ACETAMINOPHEN < 10 UG/ML (10-30)
[2022-10-03 14:33] LABS: HCG,QUALITATIVE URINE NEGATIVE (NEGATIVE)
[2022-10-03 14:37] LABS: BACTERIA,URINE TRACE /HPF
[2022-10-03 14:42] LABS: AMPHETAMINE SCREEN, URINE NEGATIVE (NEGATIVE); BARBITURATE SCREEN URINE NEGATIVE (NEGATIVE); BENZODIAZEPINES SCREEN URINE NEGATIVE (NEGATIVE); CANNABINOID SCREEN, URINE POSITIVE (NEGATIVE); COCAINE SCREEN URINE NEGATIVE (NEGATIVE); METHADONE STAT NEGATIVE (NEGATIVE); OPIATE SCREEN URINE NEGATIVE (NEGATIVE); OXYCODONE STAT NEGATIVE (NEGATIVE); PROPOXYPHENE STAT NEGATIVE (NEGATIVE); TRICYCLIC ANTIDEPRESSANTS SCRE POSITIVE (NEGATIVE)
[2022-10-03 19:30] VITALS: BP 129/69
== END 2022-10-03 19:30 | disposition home or self-care (01) ==
LOC: EDUNIT# 12:12 → ER 12:15
DX: F22 Delusional disorders (principal); R10.30 Lower abdominal pain, unspecified; F17.210 Nicotine dependence, cigarettes, uncomplicated; F17.290 Nicotine dependence, other tobacco product, uncomplicated; Z79.899 Other long term (current) drug therapy
CPT/HCPCS: 36415; 80053; 80306; 80320; 80329; 81000; 84703; 85025; 87088; 93005

== ENCOUNTER 2022-11-05 19:40 | Emergency (ER) | payer MEDICAID ==
[~2022-11-05] VITALS: Ht 160 cm; Wt 75.0 kg
--- NOTE | 2022-11-05 19:56 | ED General ---
General Chief Complaint: Substance Abuse Stated Complaint: INTOXICATION Source of Information: Patient (PT IS UNDER THE INFLUENCE OF SOME SUBSTANCE/S. VERY DIFFICULT HISTORIAN), Old Records History of Present Illness Date Seen by Provider: Nov 05, 2022 Time Seen by Provider: 19:42 Initial Comments PT ARRIVES VIA EMS PT STATES SHE WAS SMOKING METH AND FELT LIKE SHE COULDN'T BREATHE SO CALLED EMS PT STATES SHE IS AN ALCOHOLIC AND AN ADDICT AND SHE DRINKS ALCOHOL ALL DAY LONG--STATES SHE USUALLY DRINKS BEER, HAS HAD "A FEW SWIGS TODAY" STATES SHE SMOKES METH AND MARIJUANA EVERY DAY--STATES SHE USES METH "ANY WAY I CAN--I LIKE TO DRINK IT" PT ARRIVES DRINKING SOMETHING ( A HOT CLEAR LIQUID ) FROM A LARGE PLASTIC DRINK CONTAINER, SHE IS BEING BROUGHT INTO ER FROM THE AMBULANCE. THIS WAS REMOVED FROM PT ON ARRIVAL, WAS HER BACK PACK THAT SHE BROUGHT WITH HER. PT WITH VERY RAPID AND ERRATIC SPEECH, AND IS CURSING AND THRASHING ALL OVER. PCP: ANAYELI-YVROSE Allergies and Home Medications Allergies Coded Allergies: sulfamethoxazole (Verified Allergy, Mild, 10/06/20) trimethoprim (Verified Allergy, Mild, 10/06/20) Patient Home Medication List Home Medication List Reviewed: Yes Brexpiprazole (Rexulti) 2 Mg Tablet, 2 MG PO HS, (Reported) Entered as Reported by: JOY CHEN on 08/07/20921 Cephalexin (Cephalexin) 500 Mg Tablet, 500 MG PO QID Prescribed by: JANAK PIZARRO on 08/01/22 1444 Clindamycin HCl (Clindamycin HCl) 300 Mg Capsule, 300 MG PO QID Prescribed by: JEAN-CLAUDE SILVA on 06/21/22 2317 Docosanol (Abreva) 1 Tube Cream.gm., 1 TUBE TP TID Prescribed by: JARRED HARPER on 10/07/20 1026 Doxycycline Monohydrate (Doxycycline Monohydrate) 100 Mg Tablet, 100 MG PO BID Prescribed by: JANAK PIZARRO on 08/01/22 1444 Gabapentin (Neurontin) 300 Mg Capsule, 300 MG PO TID, (Reported) Entered as Reported by: JOY CHEN on 08/07/20 0922 Hydrocodone/Acetaminophen (Hydrocodone-Acetamin 5-325 mg) 1 Each Tablet, 1 TAB PO Q4H PRN for PAIN-MODERATE (5-7) Prescribed by: LAWSON PEREZ on 05/30/21 1646 Hydroxyzine HCl (Hydroxyzine HCl) 50 Mg Tablet, 50 MG PO TID PRN for ANXIETY, (Reported) Entered as Reported by: JOY CHEN on 08/07/20921 Hydroxyzine HCl (Hydroxyzine HCl) 25 Mg Tablet, 25 MG PO Q6H PRN for ITCHING Prescribed by: JANAK PIZARRO on 08/01/22 143 Levofloxacin (Levofloxacin) 500 Mg Tablet, 500 MG PO DAILY Prescribed by: JEAN-CLAUDE SILVA on 08/18/222200 Mupirocin (Mupirocin) 2 % Oint...g., 22 GM TP BID Prescribed by: JEAN-CLAUDE SILVA on 08/18/222200 Naproxen (Naprosyn) 500 Mg Tablet, 500 MG PO BID PRN for PAIN-SEVERE (8-10) Prescribed by: LAWSON PEREZ on 05/30/21 1645 Neomycn/Baci Zn/Pmyx Bs/Pramox (Neosporin + Pain Relief Oint) 3.5-10K-10 Oint...g., 28.3 GM TP BID Prescribed by: JANAK PIZARRO on 08/01/22 143 Prednisone (Prednisone) 20 Mg Tab, 40 MG PO DAILY Prescribed by: JEAN-CLAUDE SILVA on 06/21/222310 Sertraline HCl (Sertraline HCl) 100 Mg Tablet, 100 MG PO DAILY, (Reported) Entered as Reported by: JOY CHEN on 08/07/20921 Trazodone HCl (Trazodone HCl) 50 Mg Tablet, 50-100 MG PO HS, (Reported) Entered as Reported by: JOY CHEN on 08/07/20921 Triamcinolone Acet (Triamcinolone Acetonide 0.1% Cream) 0.1 % Cr, 15 GM TP TID Prescribed by: JEAN-CLAUDE SILVA on 06/21/222310 Triamcinolone Acetonide (Triamcinolone Acetonide 0.5% Cream) 15 Gm Cream..g., 15 GM TP BID Prescribed by: JARRED HARPER on 10/07/20 1026 Review of Systems Review of Systems Constitutional: no symptoms reported Psychiatric/Neurological: See HPI Past [id number]-Qvpdtz Hx Patient Social History Tobacco Use?: Yes Tobacco type used: Cigarettes Smoking Status: Current Everyday Smoker Substance use?: Yes Substance type: Methamphetamine, Marijuana Substance frequency: Daily Alcohol Use?: Yes Alcohol type: Beer, Hard Liquor Alcohol Frequency: Daily Immunizations Up To Date First/Initial COVID19 Vaccinat: 2020 Second COVID19 Vaccination Tristin: 2020 Third COVID19 Vaccination Date: 2020 Past Medical History Surgery/Hospitalization HX: pfo, hemangioma removal, ortho, bipolar Surgeries: Yes (PT HAS SURGICAL SCAR TO LEFT HUMERUS AREA) Respiratory: No (None reported) Cardiac: No (None reported) Neurological: No (None reported) Genitourinary: No (None) Gastrointestinal: No (None reported) Musculoskeletal: No (None reported) Endocrine: No (None reported) HEENT: No (None report) Cancer: No (None reported) Psychosocial: Yes (POLYSUBSTANCE ABUSE; OVERDOSES/SUICIDE ATTEMPTS) Anxiety, Suicide Attempts Integumentary: Yes (HEMANGIOMA REMOVED FROM ARM; EXTENSIVE SKIN SORES FROM PICKING) Blood Disorders: No Family Medical History SOCIAL HISTORY: -SMOKES 1/2-1 PPD. SHE ALSO VAPES NICOTINE -ETOH--ABUSE/HEAVY USE -DRUGS--EXTENSIVE METH USE. STATES SHE SMOKES IT AND VAPES IT. ALSO THC USE PAST SURGICAL HISTORY: -RIGHT UPPER ARM HEMANGIOMA REMOVED Physical Exam Vital Signs Vital Signs - First Documented 11/05/22 11/05/22 19:48 21:05 Pulse 110 Resp 20 B/P (MAP) 123/83 Pulse Ox 97 O2 Delivery Room Air Capillary Refill : Less Than 3 Seconds Height, Weight, BMI Height: '" Weight: lbs. oz. kg; 29.00 BMI Method: General Appearance: WD/WN, Anxious, Other (SPEECH RAPID, ERRATIC, TALKING NON- STOP AT LENGTH VERY LOUDLY, RAPIDLY ESCALATING. CONSTANT MOVEMENTS OF ENTIRE BODY. CONSTANT GUTTERAL NOISES, GROWLING, GRUNTING AND CLEARING THROAT. APPEARS TO BE UNDER THE INFLUENCE OF SOME SUBSTANCE/S) Neck: Normal Inspection Respiratory: Normal Breath Sounds, No Accessory Muscle Use, No Respiratory Distress Cardiovascular: No Murmur, Tachycardia Gastrointestinal: Non Tender, Soft Extremity: Normal Capillary Refill, No Pedal Edema Neurologic/Psychiatric: Alert, Oriented x3, No Motor/Sensory Deficits, carton liner II- XII Norm as Tested, Other (BEHAVIOR ABOVE) Skin: Normal Color, Warm/Dry, Tattoos/Piercings, Other (EXTENSIVE SORES/SCARS/SCABS OVER MOST OF THE FRONT OF HER BODY ESPECIALLY FACE, ARMS, LEGS AND CHEST. NO SIGNS OF SECONDARY INFECTION) Progress/Results/Core Measures Suspected Sepsis SIRS Temperature: Pulse: 110 Respiratory Rate: 20 Laboratory Tests 11/05/22 20:00: White Blood Count 9.6 Blood Pressure / Mean: Laboratory Tests 11/05/22 20:00: Creatinine 0.70, Platelet Count 310, Total Bilirubin 0.5 Results/Orders Lab Results Laboratory Tests Test 11/05/22 20:00 11/05/22 20:28 Range/Units White Blood Count 9.6 4.3-11.0 10^3/uL Red Blood Count 4.59 3.80-5.11 10^6/uL Hemoglobin 14.6 11.5-16.0 g/dL Hematocrit 42 35-52 % Mean Corpuscular Volume 91 80-99 fL Mean Corpuscular Hemoglobin 32 25-34 pg Mean Corpuscular Hemoglobin Concent 35 32-36 g/dL Red Cell Distribution Width 12.3 10.0-14.5 % Platelet Count 310 130-400 10^3/uL Mean Platelet Volume 9.6 9.0-12.2 fL Immature Granulocyte % (Auto) 0 % Neutrophils (%) (Auto) 52 42-75 % Lymphocytes (%) (Auto) 34 12-44 % Monocytes (%) (Auto) 11 0-12 % Eosinophils (%) (Auto) 2 0-10 % Basophils (%) (Auto) 1 0-10 % Neutrophils # (Auto) 4.9 1.8-7.8 10^3/uL Lymphocytes # (Auto) 3.3 1.0-4.0 10^3/uL Monocytes # (Auto) 1.1 H 0.0-1.0 10^3/uL Eosinophils # (Auto) 0.2 0.0-0.3 10^3/uL Basophils # (Auto) 0.1 0.0-0.1 10^3/uL Immature Granulocyte # (Auto) 0.0 0.0-0.1 10^3/uL Sodium Level 137 135-145 MMOL/L Potassium Level 3.3 L 3.6-5.0 MMOL/L Chloride Level 106 98-107 MMOL/L Carbon Dioxide Level 18 L 21-32 MMOL/L Anion Gap 13 5-14 MMOL/L Blood Urea Nitrogen 7 7-18 MG/DL Creatinine 0.70 0.60-1.30 MG/DL Estimat Glomerular Filtration Rate 114 BUN/Creatinine Ratio 10 Glucose Level 85 70-105 MG/DL Calcium Level 9.3 8.5-10.1 MG/DL Corrected Calcium 9.1 8.5-10.1 MG/DL Magnesium Level 2.2 1.6-2.4 MG/DL Total Bilirubin 0.5 0.1-1.0 MG/DL Aspartate Amino Transf (AST/SGOT) 33 5-34 U/L Alanine Aminotransferase (ALT/SGPT) 19 0-55 U/L Alkaline Phosphatase 58 40-136 U/L Total Protein 6.9 6.4-8.2 GM/DL Albumin 4.2 3.2-4.5 GM/DL Serum Test, Qualitative NEGATIVE NEGATIVE Salicylates Level < 5.0 L 5.0-20.0 MG/DL Acetaminophen Level < 10 L 10-30 UG/ML Serum Alcohol 144 H <10 MG/DL Urine Opiates Screen NEGATIVE NEGATIVE Urine Oxycodone Screen NEGATIVE NEGATIVE Urine Methadone Screen NEGATIVE NEGATIVE Urine Propoxyphene Screen NEGATIVE NEGATIVE Urine Barbiturates Screen NEGATIVE NEGATIVE Ur Tricyclic Antidepressants Screen NEGATIVE NEGATIVE Urine Phencyclidine Screen NEGATIVE NEGATIVE Urine Amphetamines Screen POSITIVE H NEGATIVE Urine Methamphetamines Screen POSITIVE H NEGATIVE Urine Benzodiazepines Screen NEGATIVE NEGATIVE Urine Cocaine Screen NEGATIVE NEGATIVE Urine Cannabinoids Screen POSITIVE H NEGATIVE My Orders Orders - RICARDOJEAN-CLAUDE K DO Acetaminophen (11/05/22 19:50) Alcohol (11/05/22 19:50) Cbc With Automated Diff (11/05/22 19:50) Comprehensive Metabolic Panel (11/05/22 19:50) Drug Screen Stat (Urine) (11/05/22 19:50) Hcg,Qualitative Serum (11/05/22 19:50) Magnesium (11/05/22 19:50) Salicylate (11/05/22 19:50) Vital Signs/I&O 11/05/22 11/05/22 19:48 21:05 Pulse 110 102 Resp 20 20 B/P (MAP) 123/83 Pulse Ox 97 97 O2 Delivery Room Air Room Air Capillary Refill : Less Than 3 Seconds Progress Note : Progress Note NO DETERIORATION IN PT'S CONDITION DURING ER STAY VITALS STABLE NO DYSPNEA, NO HYPOXIA, NO ABNORMAL LUNG SOUNDS NO CHEST PAIN NO EVIDENCE OF AN ACUTE PROCESS PT IS CALMER AT DISMISSAL AND FEELS COMFORTABLE GOING HOME SHE STATES "I JUST HAD A PANIC ATTACK AND I THOUGHT I COULDN'T BREATHE BUT I'M FINE NOW" REVIEWED PRIOR RECORDS, INCLUDING ER VISITS. DISCUSSED TEST RESULTS, ANTICIPATED COURSE, NEED FOR FOLLOW UP AND RETURN PRECAUTIONS SUBSTANCE ABUSE INFORMATION GIVEN TO PT. Departure Impression Primary Impression: Polysubstance abuse Additional Impressions: Alcohol intoxication Alcohol abuse Methamphetamine addiction Addiction, marijuana Disposition: 01 HOME, SELF-CARE Condition: Improved Departure-Patient Inst. Decision time for Depature: 20:54 Referrals: [facility] (PCP[facility]Family) Primary Care Physician Patient Instructions: ALCOHOL AND SUBSTANCE ABUSE Add. Discharge Instructions: NO DRUGS OR ALCOHOL FOLLOW UP WITH [facility] FOR FURTHER CARE. CALL IN THE MORNING TO SCHEDULE AN APPOINTMENT All discharge instructions reviewed with patient and/or family. Voiced understanding. JEAN-CLAUDE SILVA DO Nov 05, 2022 19:56
[2022-11-05 20:07] LABS: BASOPHILS # (AUTO) 0.1 10^3/uL (0.0-0.1); BASOPHILS % (AUTO) 1 % (0-10); EOSINOPHILS # (AUTO) 0.2 10^3/uL (0.0-0.3); EOSINOPHILS % (AUTO) 2 % (0-10); HEMATOCRIT 42 % (35-52); HEMOGLOBIN 14.6 g/dL (11.5-16.0); LYMPHOCYTES # (AUTO) 3.3 10^3/uL (1.0-4.0); LYMPHOCYTES % (AUTO) 34 % (12-44); MEAN CORPUSCULAR HEMOGLOBIN 32 pg (25-34); MEAN CORPUSCULAR HGB CONC 35 g/dL (32-36); MEAN CORPUSCULAR VOLUME 91 fL (80-99); MEAN PLATELET VOLUME 9.6 fL (9.0-12.2); MONOCYTES # (AUTO) 1.1 10^3/uL (0.0-1.0); MONOCYTES % (AUTO) 11 % (0-12); NEUTROPHILS # (AUTO) 4.9 10^3/uL (1.8-7.8); NEUTROPHILS % (AUTO) 52 % (42-75); PLATELET COUNT 310 10^3/uL (130-400); WHITE BLOOD COUNT 9.6 10^3/uL (4.3-11.0)
[2022-11-05 20:42] LABS: CHLORIDE 106 MMOL/L (98-107); POTASSIUM 3.3 MMOL/L (3.6-5.0); SODIUM 137 MMOL/L (135-145)
[2022-11-05 20:43] LABS: ALBUMIN 4.2 GM/DL (3.2-4.5)
[2022-11-05 20:44] LABS: CALCIUM 9.3 MG/DL (8.5-10.1)
[2022-11-05 20:45] LABS: GLUCOSE 85 MG/DL (70-105); TOTAL PROTEIN 6.9 GM/DL (6.4-8.2)
[2022-11-05 20:46] LABS: CARBON DIOXIDE 18 MMOL/L (21-32)
[2022-11-05 20:47] LABS: BILIRUBIN,TOTAL 0.5 MG/DL (0.1-1.0)
[2022-11-05 20:49] LABS: ALKALINE PHOSPHATASE 58 U/L (40-136); GFR ESTIMATED 114
[2022-11-05 20:50] LABS: AMPHETAMINE SCREEN, URINE POSITIVE (NEGATIVE); BENZODIAZEPINES SCREEN URINE NEGATIVE (NEGATIVE); CANNABINOID SCREEN, URINE POSITIVE (NEGATIVE); COCAINE SCREEN URINE NEGATIVE (NEGATIVE)
[2022-11-05 20:50] LABS: BUN/CREATININE RATIO 10
[2022-11-05 20:51] LABS: BARBITURATE SCREEN URINE NEGATIVE (NEGATIVE); METHADONE STAT NEGATIVE (NEGATIVE); OPIATE SCREEN URINE NEGATIVE (NEGATIVE); OXYCODONE STAT NEGATIVE (NEGATIVE); PROPOXYPHENE STAT NEGATIVE (NEGATIVE); TRICYCLIC ANTIDEPRESSANTS SCRE NEGATIVE (NEGATIVE)
[2022-11-05 20:51] LABS: ACETAMINOPHEN < 10 UG/ML (10-30)
[2022-11-05 20:52] LABS: ALANINE AMINOTRANSFERASE 19 U/L (0-55); MAGNESIUM 2.2 MG/DL (1.6-2.4); SALICYLATE < 5.0 MG/DL (5.0-20.0)
[2022-11-05 21:05] VITALS: BP 123/83
== END 2022-11-05 21:06 | disposition home or self-care (01) ==
LOC: EDUNIT# 19:40 → ER 19:40
DX: F10.129 Alcohol abuse with intoxication, unspecified (principal); F19.10 Other psychoactive substance abuse, uncomplicated; F12.20 Cannabis dependence, uncomplicated; F15.20 Other stimulant dependence, uncomplicated; F17.210 Nicotine dependence, cigarettes, uncomplicated; F17.290 Nicotine dependence, other tobacco product, uncomplicated; Y90.6 Blood alcohol level of 120-199 mg/100 ml
CPT/HCPCS: 36415; 80053; 80306; 80320; 80329; 83735; 84703; 85025

== ENCOUNTER 2022-11-29 17:31 | Emergency (ER) | payer MEDICAID ==
[~2022-11-29] VITALS: Ht 160 cm; Wt 75.0 kg
[2022-11-29] MEDS ORDERED: MUPI22OI2 TP (18:04)
[2022-11-29] MEDS ORDERED: CLIN-144 PO (18:04)
--- NOTE | 2022-11-29 18:04 | ED Integumentary General ---
General Chief Complaint: Skin/Wound Problems Stated Complaint: RASH/BACK PAIN Source: patient (SPEECH ERRATIC AND TANGENTIAL, TALKS NON-STOP), old records History of Present Illness Date Seen by Provider: Nov 29, 2022 Time Seen by Provider: 17:54 Initial Comments PT ARRIVES VIA POV STATES "SAME BULLSHIT THAT'S GOING ON WITH ME" "IT'S GETTING WORSE AND I STINK NOW" "I GOT THROWN OUT OF [facility] TODAY" "I'M GOING TO REHAB IN 2 WEEKS" ( SHE CLAIMS THAT [facility] HAS PUT IN A REFERRAL FOR HER TO GET INTO SUBSTANCE ABUSE TREATMENT PROGRAM, BUT HAS NOT BEEN ACCEPTED ANYWHERE ) C/O MULTIPLE SORES ALL OVER BODY--THIS HAS BEEN ONGOING FOR MANY MONTHS "I THINK SOMEONE'S PUTTING SOMETHING IN MY HAIR AND IT FALLS OUT AND MAKES ME HAVE THESE SORES ALL OVER" "IT SPREADS IF I SWEAT" "STUFF COMES OUT OF THIS AND IT FALLS INTO OTHER PORES AND SOLID STUFF COMES OUT LIKE DRIED BLOOD" "IT'S COMING OUT OF MY FINGERNAILS AND IT WON'T COME OUT FROM UNDER MY FINGERNAILS" STATES IT ITCHES AND IT HURTS PT HAS BEEN SEEN HERE MULTIPLE TIMES FOR THIS SHE HAS HISTORY OF MRSA INFECTIONS PT HAS EXTENSIVE POLYSUBSTANCE ABUSE, INCLUDING IV METHAMPHETAMINES SHE ALSO DRINKS HEAVILY DAILY PCP: [facility] Allergies and Home Medications Allergies Coded Allergies: sulfamethoxazole (Verified Allergy, Mild, 10/06/20) trimethoprim (Verified Allergy, Mild, 10/06/20) Patient Home Medication List Home Medication List Reviewed: Yes Brexpiprazole (Rexulti) 2 Mg Tablet, 2 MG PO HS, (Reported) Entered as Reported by: JOY CHEN on 08/07/20 0922 Cephalexin (Cephalexin) 500 Mg Tablet, 500 MG PO QID Prescribed by: JANAK PIZARRO on 08/01/22 1444 Clindamycin HCl (Clindamycin HCl) 300 Mg Capsule, 300 MG PO QID Prescribed by: JEAN-CLAUDE SILVA on 06/21/22 2317 Clindamycin HCl (Clindamycin HCl) 300 Mg Capsule, 300 MG PO QID Prescribed by: JEAN-CLAUDE SILVA on 11/29/22 1804 Docosanol (Abreva) 1 Tube Cream.gm., 1 TUBE TP TID Prescribed by: JARRED HARPER on 10/07/20 1026 Doxycycline Monohydrate (Doxycycline Monohydrate) 100 Mg Tablet, 100 MG PO BID Prescribed by: JANAK PIZARRO on 08/01/22 1444 Gabapentin (Neurontin) 300 Mg Capsule, 300 MG PO TID, (Reported) Entered as Reported by: JOY CHEN on 08/07/20 0922 Hydrocodone/Acetaminophen (Hydrocodone-Acetamin 5-325 mg) 1 Each Tablet, 1 TAB PO Q4H PRN for PAIN-MODERATE (5-7) Prescribed by: LAWSON PEREZ on 05/30/21 1646 Hydroxyzine HCl (Hydroxyzine HCl) 50 Mg Tablet, 50 MG PO TID PRN for ANXIETY, (Reported) Entered as Reported by: JOY CHEN on 08/07/20 09 Hydroxyzine HCl (Hydroxyzine HCl) 25 Mg Tablet, 25 MG PO Q6H PRN for ITCHING Prescribed by: JANAK PIZARRO on 08/01/22 1432 Levofloxacin (Levofloxacin) 500 Mg Tablet, 500 MG PO DAILY Prescribed by: JEAN-CLAUDE SILVA on 08/18/222200 Mupirocin (Mupirocin) 2 % Oint...g., 22 GM TP BID Prescribed by: JEAN-CLAUDE SILVA on 08/18/222200 Mupirocin (Mupirocin) 2 % Oint...g., 22 GM TP BID Prescribed by: JEAN-CLAUDE SILVA on 11/29/22 1804 Naproxen (Naprosyn) 500 Mg Tablet, 500 MG PO BID PRN for PAIN-SEVERE (8-10) Prescribed by: LAWSON PEREZ on 05/30/21 1645 Neomycn/Baci Zn/Pmyx Bs/Pramox (Neosporin + Pain Relief Oint) 3.5-10K-10 Oint...g., 28.3 GM TP BID Prescribed by: JANAK PIZARRO on 08/01/22 1435 Prednisone (Prednisone) 20 Mg Tab, 40 MG PO DAILY Prescribed by: JEAN-CLAUDE SILVA on 06/21/22 2311 Sertraline HCl (Sertraline HCl) 100 Mg Tablet, 100 MG PO DAILY, (Reported) Entered as Reported by: JOY CHEN on 08/07/20921 Trazodone HCl (Trazodone HCl) 50 Mg Tablet, 50-100 MG PO HS, (Reported) Entered as Reported by: JOY CHEN on 08/07/20921 Triamcinolone Acet (Triamcinolone Acetonide 0.1% Cream) 0.1 % Cr, 15 GM TP TID Prescribed by: JEAN-CLAUDE SILVA on 06/21/22 2311 Triamcinolone Acetonide (Triamcinolone Acetonide 0.5% Cream) 15 Gm Cream..g., 15 GM TP BID Prescribed by: JARRED HARPER on 10/07/20 1026 Review of Systems Review of Systems Constitutional: no symptoms reported Skin: see HPI Psychiatric/Neurological: See HPI Past Vksaqjt-Pmmajv-Mjfowf Hx Patient Social History Tobacco Use?: Yes Tobacco type used: Cigarettes Smoking Status: Current Everyday Smoker Use of E-Cig and/or Vaping dev: Yes E-Cig or Vaping type used: Nicotine Use of E-Cig and/or Vaping Jose: Current Everyday User Substance use?: Yes Substance type: Methamphetamine, Marijuana Substance frequency: Daily Alcohol Use?: Yes Alcohol type: Beer, Hard Liquor Alcohol Frequency: Daily Immunizations Up To Date Influenza Vaccine Up-to-Date: No; Not Current First/Initial COVID19 Vaccinat: 2020 Second COVID19 Vaccination Tristin: 2020 Third COVID19 Vaccination Date: 2020 Past Medical History Surgery/Hospitalization HX: pfo, hemangioma removal, ortho, bipolar Surgeries: Yes (PT HAS SURGICAL SCAR TO LEFT HUMERUS AREA) Respiratory: No (None reported) Cardiac: No (None reported) Neurological: No (None reported) Genitourinary: No (None) Gastrointestinal: No (None reported) Musculoskeletal: No (None reported) Endocrine: No (None reported) HEENT: No (None report) Cancer: No (None reported) Psychosocial: Yes (POLYSUBSTANCE ABUSE; OVERDOSES/SUICIDE ATTEMPTS) Anxiety, Suicide Attempts Integumentary: Yes (HEMANGIOMA REMOVED FROM ARM; EXTENSIVE SKIN SORES FROM PICKING) Blood Disorders: No Family Medical History SOCIAL HISTORY: -SMOKES 1/2-1 PPD. SHE ALSO VAPES NICOTINE -ETOH--ABUSE/HEAVY USE -- AT LEAST 2 PINTS OF VODKA PLUS BEER DAILY -DRUGS--EXTENSIVE IV METH USE. STATES SHE ALSO SMOKES IT AND VAPES IT. ALSO THC USE PAST SURGICAL HISTORY: -RIGHT UPPER ARM HEMANGIOMA REMOVED Physical Exam Vital Signs Vital Signs - First Documented 11/29/22 17:38 Temp 36.6 Pulse 98 Resp 18 B/P (MAP) 108/91 (97) Pulse Ox 98 O2 Delivery Room Air Capillary Refill : General Appearance: WD/WN, no apparent distress, other (TALKS NON-STOP, CONSTANTLY PICKING AT HER SKIN ALL OVER. TALKS NON-STOP, SPEECH IS ERRATIC AND TANGENTIAL. SHE APPEARS TO BE UNDER THE INFLUENCE OF SOME SUBSTANCE/S) Extremities: normal capillary refill Neurologic/Psychiatric: no motor/sensory deficits, alert, oriented x 3 Skin: normal color, warm/dry, other (PT HAS EXTENSIVE SORES/SCARS/SCABS TO MOST OF BODY--ONLY IN PLACES WHERE SHE CAN REACH HERSELF. SEVERAL ARE BLEEDING, SHE IS PICKING THROUGHOUT ER VISIT. NO PURULENT DRAINAGE NOTED ANYWHERE,, THERE ARE SOME AREAS WITH MILD LOCAL ERYTHEMA AROUND THE SORES. NO EVIDENCE OF ABSCESS ANYWHERE. ) Progress/Results/Core Measures Results/Orders Vital Signs/I&O 11/29/22 17:38 Temp 36.6 Pulse 98 Resp 18 B/P (MAP) 108/91 (97) Pulse Ox 98 O2 Delivery Room Air Progress Progress Note : Progress Note REVIEWED PRIOR RECORDS, MOSTLY ER VISITS DISCUSSED ANTICIPATED COURSE, SYMPTOMATIC TREATMENT, MEDICATIONS, NEED FOR FOLLOW UP AND RETURN PRECAUTIONS Departure Impression Primary Impression: Skin-picking disorder Additional Impressions: Methamphetamine addiction Hx MRSA infection Polysubstance abuse Alcohol abuse Addiction, marijuana Disposition: 01 HOME, SELF-CARE Condition: Stable Departure-Patient Inst. Decision time for Depature: 18:02 Referrals: [facility] ([facility]Family) Primary Care Physician Patient Instructions: Substance Misuse Treatment, Wound Care (DC) Add. Discharge Instructions: DO NOT TOUCH YOUR SKIN WEAR GLOVES OR SOCKS ON YOUR HANDS TO PREVENT PICKING OR TOUCHING YOUR SKIN FOLLOW UP WITH [facility] IN 2-3 DAYS FOR FURTHER CARE All discharge instructions reviewed with patient and/or family. Voiced understanding. Scripts Mupirocin (Mupirocin) 2 % Oint...g. 22 GM TP BID, #1 TUBE Prov: JEAN-CLAUDE SILVA DO 11/29/22 Clindamycin HCl (Clindamycin HCl) 300 Mg Capsule 300 MG PO QID, #28 CAP Prov: JEAN-CLAUDE SILVA DO 11/29/22 JEAN-CLAUDE SILVA DO Nov 29, 2022 18:04
[2022-11-29 18:08] VITALS: BP 108/91
== END 2022-11-29 18:11 | disposition home or self-care (01) ==
LOC: EDUNIT# 17:31 → ER 17:34
DX: F42.4 Excoriation (skin-picking) disorder (principal); F15.20 Other stimulant dependence, uncomplicated; F12.20 Cannabis dependence, uncomplicated; F10.10 Alcohol abuse, uncomplicated; F19.10 Other psychoactive substance abuse, uncomplicated; F17.210 Nicotine dependence, cigarettes, uncomplicated; F17.290 Nicotine dependence, other tobacco product, uncomplicated; Z86.14 Personal history of Methicillin resistant Staphylococcus aureus infection; Z88.2 Allergy status to sulfonamides
CPT/HCPCS: 99282

== ENCOUNTER 2023-03-08 00:18 | Emergency (ER) | payer MEDICAID ==
[~2023-03-08] VITALS: Ht 160 cm; Wt 84.4 kg
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
[2023-03-08 01:32] LABS: CHLORIDE 109 MMOL/L (98-107); POTASSIUM 3.7 MMOL/L (3.6-5.0); SODIUM 139 MMOL/L (135-145)
[2023-03-08 01:33] LABS: ALBUMIN 4.1 GM/DL (3.2-4.5)
[2023-03-08 01:34] LABS: CALCIUM 8.8 MG/DL (8.5-10.1)
[2023-03-08 01:35] LABS: GLUCOSE 97 MG/DL (70-105); TOTAL PROTEIN 6.6 GM/DL (6.4-8.2)
[2023-03-08 01:36] LABS: CARBON DIOXIDE 20 MMOL/L (21-32)
[2023-03-08 01:37] LABS: BILIRUBIN,TOTAL 0.7 MG/DL (0.1-1.0)
[2023-03-08 01:39] LABS: ALKALINE PHOSPHATASE 87 U/L (40-136); BASOPHILS % (AUTO) 1 % (0-10); CREATININE SERUM 0.65 MG/DL (0.60-1.30); EOSINOPHILS # (AUTO) 0.1 10^3/uL (0.0-0.3); EOSINOPHILS % (AUTO) 1 % (0-10); GFR ESTIMATED 116; HEMATOCRIT 44 % (35-52); HEMOGLOBIN 14.8 g/dL (11.5-16.0); LYMPHOCYTES # (AUTO) 2.4 10^3/uL (1.0-4.0); LYMPHOCYTES % (AUTO) 29 % (12-44); MEAN CORPUSCULAR HEMOGLOBIN 31 pg (25-34); MEAN CORPUSCULAR HGB CONC 34 g/dL (32-36); MEAN CORPUSCULAR VOLUME 92 fL (80-99); MEAN PLATELET VOLUME 9.1 fL (9.0-12.2); MONOCYTES # (AUTO) 0.5 10^3/uL (0.0-1.0); MONOCYTES % (AUTO) 6 % (0-12); NEUTROPHILS # (AUTO) 5.3 10^3/uL (1.8-7.8); NEUTROPHILS % (AUTO) 63 % (42-75); PLATELET COUNT 321 10^3/uL (130-400); WHITE BLOOD COUNT 8.5 10^3/uL (4.3-11.0)
[2023-03-08 01:40] LABS: BUN/CREATININE RATIO 11
[2023-03-08 01:42] LABS: ALANINE AMINOTRANSFERASE 9 U/L (0-55); SALICYLATE < 5.0 MG/DL (5.0-20.0)
[2023-03-08 01:57] LABS: AMPHETAMINE SCREEN, URINE POSITIVE (NEGATIVE); BARBITURATE SCREEN URINE NEGATIVE (NEGATIVE); CANNABINOID SCREEN, URINE POSITIVE (NEGATIVE); COCAINE SCREEN URINE NEGATIVE (NEGATIVE); METHADONE STAT NEGATIVE (NEGATIVE); OPIATE SCREEN URINE NEGATIVE (NEGATIVE); OXYCODONE STAT NEGATIVE (NEGATIVE); PROPOXYPHENE STAT NEGATIVE (NEGATIVE); TRICYCLIC ANTIDEPRESSANTS SCRE NEGATIVE (NEGATIVE)
[2023-03-08 02:06] LABS: CLARITY,URINE CLEAR; COLOR,URINE YELLOW
[2023-03-08 02:14] LABS: BACTERIA,URINE FEW /HPF; BILIRUBIN,URINE NEGATIVE (NEGATIVE); GLUCOSE, URINE (UA) NEGATIVE (NEGATIVE); KETONES,URINE NEGATIVE (NEGATIVE); LEUKOCYTE ESTERASE ,URINE NEGATIVE (NEGATIVE); NITRITE,URINE NEGATIVE (NEGATIVE); PH,URINE 7.5 (5-9); PROTEIN,URINE NEGATIVE (NEGATIVE)
[2023-03-08 02:15] LABS: AMORPHOUS SEDIMENT,UR FEW AMOR PHOSPHATE /LPF
[2023-03-08 02:16] LABS: ACETAMINOPHEN < 10 UG/ML (10-30)
[2023-03-08] MEDS ORDERED: OLANZapine 5 MG ODT TABLET ONE (07:05)
[2023-03-08] MEDS ORDERED: OLANZapine 5 MG ODT TABLET PO ONE (07:15)
[2023-03-08] MEDS ORDERED: NICOTINE 21 MG PATCH TD ONE (11:30)
[2023-03-08] MEDS ORDERED: IBUPROFEN 800 MG TABLET PO STA (15:18)
[2023-03-08] MEDS ORDERED: NYSTATIN ORAL SUSP 5 ML UDC ONE (15:25)
[2023-03-08] MEDS: NYSTATIN ORAL SUSP 5 ML UDC PO SCH (15:30)
[2023-03-09] MEDS: NYSTATIN ORAL SUSP 5 ML UDC PO SCH ×3 (06:00→12:00)
[2023-03-09] MEDS ORDERED: ARIPiprazole 10 MG TABLET PO STA (11:28)
[2023-03-09] MEDS ORDERED: GABAPENTIN 300 MG CAPSULE PO ONE (11:30)
[2023-03-09] MEDS ORDERED: hydrOXYzine 25 MG CAPSULE PO ONE (11:30)
[2023-03-09 14:02] VITALS: BP 90/56
== END 2023-03-09 14:02 ==
LOC: EDUNIT# 00:18 → ER 00:20
DX: R45.850 Homicidal ideations (principal); F22 Delusional disorders; F42.4 Excoriation (skin-picking) disorder; F17.210 Nicotine dependence, cigarettes, uncomplicated; F17.290 Nicotine dependence, other tobacco product, uncomplicated; F15.20 Other stimulant dependence, uncomplicated; Z20.822 Contact with and (suspected) exposure to COVID-19
CPT/HCPCS: 36415; 80053; 80178; 80306; 80320; 80329; 81000; 84703; 85025; 87636; 93005